=== PATIENT | female | born 1945 | race Caucasian/White ===

== ENCOUNTER 2021-06-25 13:18 | Outpatient (CLI) | payer MEDICARE | END 2021-06-25 13:19 | disposition critical access hospital (66) | LOC: EMS 13:18 | DX: R06.02 Shortness of breath (principal) | CPT/HCPCS: A0425; A0427 ==

== ENCOUNTER 2021-06-25 13:42 | Emergency (ER) | payer BC, MEDICARE ==
[2021-06-25] MEDS ORDERED: diltiaZEM INJ 5 MG/ML VIAL IVP STA ×3 (14:02→15:41)
[2021-06-25] MEDS ORDERED: SODIUM CHLORIDE 0.9% 1,000 ML IV STA (14:02)
--- NOTE | 2021-06-25 14:20 | ED Physician Documentation ---
PD HPI DYSPNEA - Stated complaint Stated Complaint: SHORTNESS OF BREATH - Chief complaint Chief Complaint: Cardiac - History obtained from History obtained from: Patient, EMS - History of Present Illness Timing - onset: How many weeks ago Timing - onset during: Light activity Timing - duration: Weeks Timing - details: Abrupt onset (She states she has noted feeling of some lightheadedness with dyspnea particularly with activity over the last several weeks to a month or more. Feels okay with rest. Has had the symptoms again the last couple of days off and on.), Still present (was feeling dyspnea this morning, does not feel it currently in ER.), Waxing and waning Inciting event(s): Exercise (feeling dyspnea with light activity.). No: URI Improved by: Rest Worsened by: Exertion. No: Laying flat Associated symptoms: No: Fever, Cough, Wheezing, Chest pain / discomfort (She denies chest pain per se. She has not noticed her heart rate feeling fast rate even currently here in the ER.), Palpitations, Bilateral edema Similar symptoms before: Has not had sx before (only the past month or so.) Recently seen: Clinic (Went to the walk-in clinic today and found to be in rapid A. fib and referred here to the ER.) Review of Systems Constitutional: denies: Fever, Chills Nose: denies: Rhinorrhea / runny nose, Congestion Throat: denies: Sore throat Cardiac: denies: Chest pain / pressure, Palpitations, Pedal edema, Calf pain Respiratory: reports: Dyspnea. denies: Cough, Wheezing GI: denies: Abdominal Pain, Nausea, Vomiting, Bloody / black stool : denies: Dysuria, Frequency Musculoskeletal: denies: Extremity swelling Neurologic: reports: Generalized weakness. denies: Near syncope Psychiatric: denies: Insomnia Endocrine: denies: Weight loss PD PAST MEDICAL HISTORY - Past Medical History Past Medical History: Yes Cardiovascular: Hypertension, High cholesterol Endocrine/Autoimmune: HyPOthyroidism - Present Medications Home Medications: Ambulatory Orders Medication Instructions Recorded Confirmed Aspirin EC [Ecotrin] 81 mg PO DAILY 06/25/21 06/25/21 Levothyroxine Sodium [Synthroid] 100 mcg PO DAILY 06/25/21 06/25/21 Rivaroxaban [Xarelto] 20 mg PO DAILY 30 Days #30 tablet 06/25/21 Rosuvastatin Calcium [Crestor] 10 mg PO DAILY 06/25/21 06/25/21 diltiaZEM CD [Cardizem Cd] 120 mg PO DAILY 30 Days #30 cap 06/25/21 - Allergies Allergies/Adverse Reactions: Allergies Allergy/AdvReac Type Severity Reaction Status Date / Time ampicillin Allergy Hives Verified 06/25/21 13:51 codeine Allergy Hives Verified 06/25/21 13:51 - Social History Does the pt smoke?: No Smoking Status: Never smoker - POLST Patient has POLST: No PD ED PE NORMAL - Vitals Vital signs reviewed: Yes - General General: Alert and oriented X 3, No acute distress, Well developed/nourished - HEENT HEENT: Pharynx benign. No: Moist mucous membranes - Neck Neck: Supple, no meningeal sign, No adenopathy - Cardiac Cardiac: No murmur. No: RRR (Rapid heart rate without any notable murmur. Has irregularity.) - Respiratory Respiratory: No respiratory distress, Clear bilaterally - Abdomen Abdomen: Soft, Non tender - Derm Derm: Normal color, Warm and dry - Extremities Extremities: No edema, No calf tenderness / cord - Neuro Neuro: Alert and oriented X 3, No motor deficit, Normal speech Results - Vitals Vitals: Vital Signs - 24 hr 06/25/21 06/25/21 06/25/21 13:46 13:59 14:55 Temperature 36.3 C L Heart Rate 144 H 158 H 138 H Respiratory 20 33 H Rate Blood Pressure 164/107 H 164/107 H 138/90 H O2 Saturation 96 96 06/25/21 06/25/21 06/25/21 15:00 15:04 15:09 Temperature Heart Rate 106 H 98 81 Respiratory 23 Rate Blood Pressure 148/89 H 124/76 127/78 O2 Saturation 95 Oxygen O2 Source Room air - EKG (time done) 13:43 Rate: Rate (enter#) (145) Rhythm: Atrial fibrillation [place]: Normal Intervals: Prolonged QT QRS: LVH Ischemia: Non specific changes (c/w LVH). No: ST elevation c/w ischemia, ST depression Compare to prior EKG: Old EKG unavailable - Labs Labs: Laboratory Tests 06/25/21 06/25/21 06/25/21 14:11 14:11 14:11 WBC 10.2 RBC 4.63 Hgb 15.0 Hct 44.5 MCV 96.1 MCH 32.4 H MCHC 33.7 RDW 12.6 Plt Count 251 MPV 8.8 Neut # (Auto) 8.1 H Lymph # (Auto) 1.4 L [place] # (Auto) 0.6 Eos # (Auto) 0.1 Baso # (Auto) 0.0 Absolute Nucleated RBC 0.00 Nucleated RBC % 0.0 Sodium 140 Potassium 4.2 Chloride 107 Carbon Dioxide 21 Anion Gap 12.0 BUN 15 Creatinine 1.0 Estimated GFR (MDRD) 54 L Glucose 117 H Calcium 9.5 Magnesium 2.3 Total Bilirubin 1.8 H AST 47 H ALT 44 Alkaline Phosphatase 75 Troponin I High Sens 32.0 H* B-Natriuretic Peptide Total Protein 7.4 Albumin 4.5 Globulin 2.9 Albumin/Globulin Ratio 1.6 Lipase 78 H TSH Free T4 Free T3 pg/mL 06/25/21 06/25/21 06/25/21 14:11 14:11 14:11 WBC RBC Hgb Hct MCV MCH MCHC RDW Plt Count MPV Neut # (Auto) Lymph # (Auto) [place] # (Auto) Eos # (Auto) Baso # (Auto) Absolute Nucleated RBC Nucleated RBC % Sodium Potassium Chloride Carbon Dioxide Anion Gap BUN Creatinine Estimated GFR (MDRD) Glucose Calcium Magnesium Total Bilirubin AST ALT Alkaline Phosphatase Troponin I High Sens B-Natriuretic Peptide 572 H Total Protein Albumin Globulin Albumin/Globulin Ratio Lipase TSH 18.24 H Free T4 0.79 Free T3 pg/mL 2.74 PD MEDICAL DECISION MAKING - ED course Complexity details: reviewed results, re-evaluated patient (Heart rate is slowed after 2 doses of IV diltiazem for a total of 30 mg. The patient still feels okay. Heart rate now is 90-115. She is given an oral dose of diltiazem as well as Xarelto.), considered differential (She is noted symptoms with exertion mainly. She feels these are on and off for the last several weeks. However she does not feel tachycardic or palpitations currently so unclear whether persistent A. fib with uncontrolled rate versus intermittent fib.), d/w patient ED course: The patient's strong preference is to go home with oral medication and see how she does over the next few days. Limitations are she does not have a primary care provider. She lives with her daughter who can take her blood pressure and check her heart rate. The patient's perspective is that she was doing well enough with it going very fast and the medicine should help better than that. With that logic, it is reasonable that she should not experience too much problems if the medication is not of sufficient dose over the next few days. Shared decision is for the patient to go home with oral diltiazem and Xarelto and to recheck her then either back in the ER or walk-in or if she is able to get an acute appointment with a new care provider. Subsequently she will need primary care for ongoing dose regimen as well as further work-up to include likely echocardiogram and possible stress testing. These can be done outpatient. Old records suggest she had Dr. Romero as a primary care physician in the past. She could try contacting his office. Alternatively can give number for [facility] or other providers. Departure - Departure Clinical Impression: Atrial fibrillation with rapid ventricular response Condition: Stable Record reviewed to determine appropriate education?: Yes Instructions: ED Afib Follow-Up: Jaswinder Romero MD [Physician No Access] - [facility] [Provider Group] Prescriptions: diltiaZEM CD [Cardizem Cd] 120 mg PO DAILY 30 Days #30 cap Rivaroxaban [Xarelto] 20 mg PO DAILY 30 Days #30 tablet Comments: You do have an irregular heart rate called atrial fibrillation. It was going excessively fast and has been decreased in rate with some medication here in the ER. We will need to see what is the best optimal dose of the medication to maintain the heart rate controlled or back in normal rhythm over the next days/weeks and longer term. A concern with atrial fibrillation is forming clots in the upper heart chamber and so we commonly treat with a blood thinner as well to keep that from happening, in order to decrease the risk for stroke or blood clots and other organs. I prescribed diltiazem 120 mg daily and Xarelto 20 mg daily. Since it will be good if you are able to check your blood pressure and heart rate 2-3 times daily over the next several days to week to get a trend of how well the diltiazem is working. Call Dr. Romero or one of the other clinics in [place] and see if you can get in this coming week for a recheck. Your medication is started at a lower dose to minimize side effects. It may need to be increased in dose to regulate well your heart rate. Would also be good if your heart rate went back to his regular rhythm which is common. You will likely need further testing of your heart such as ultrasound of the heart and possibly stress testing. This can be done outpatient in order through your primary care. If you are unable to get into her primary care this coming week, then you could get rechecked at the walk-in clinic or in the ER. Return to the ER if symptoms are worsening. I transmitted your prescriptions to [facility] in [place].
[2021-06-25 14:22] LABS: BASOPHILS % (AUTO) 0.4 %; EOSINOPHILS # (AUTO) 0.1 10^3/uL (0.0-0.7); EOSINOPHILS % (AUTO) 1.2 %; HCT - HEMATOCRIT 44.5 % (37.0-47.0); LYMPHOCYTES # (AUTO) 1.4 10^3/uL (1.5-3.5); LYMPHOCYTES % (AUTO) 13.4 %; MEAN CORPUSCULAR HEMOGLOBIN 32.4 pg (27.0-31.0); MEAN CORPUSCULAR HGB CONC 33.7 g/dL (32.0-36.0); MEAN CORPUSCULAR VOLUME 96.1 fL (81.0-99.0); MEAN PLATELET VOLUME 8.8 fL (7.9-10.8); MONOCYTES # (AUTO) 0.6 10^3/uL (0.0-1.0); MONOCYTES % (AUTO) 5.4 %; NEUTROPHILS # (AUTO) 8.1 10^3/uL (1.5-6.6); NEUTROPHILS % (AUTO) 79.1 %; PLT - PLATELET COUNT 251 10^3/uL (130-450); RED BLOOD COUNT 4.63 10^6/uL (4.20-5.40); RED CELL DISTRIBUTION WIDTH 12.6 % (12.0-15.0); WHITE BLOOD COUNT 10.2 x10^3/uL (4.8-10.8)
[2021-06-25 14:35] LABS: ALBUMIN 4.5 g/dL (3.2-5.5); ALBUMIN/GLOBULIN RATIO 1.6 (1.0-2.2); BILIRUBIN,TOTAL 1.8 mg/dL (0.2-1.0); CALCIUM 9.5 mg/dL (8.5-10.3); MAGNESIUM 2.3 mg/dL (1.7-2.8); POTASSIUM 4.2 mmol/L (3.5-5.0); TOTAL PROTEIN 7.4 g/dL (6.7-8.2)
[2021-06-25] MEDS ORDERED: diltiaZEM 30 MG TABLET PO STA (15:12)
[2021-06-25] MEDS ORDERED: RIVAROXABAN 15 MG TABLET PO STA (15:12)
--- NOTE | 2021-06-25 15:13 | XRAY Report ---
PROCEDURE: Chest 1 View X-Ray INDICATIONS: Chest Pain TECHNIQUE: One view of the chest was acquired. COMPARISON: None FINDINGS: Surgical changes and devices: None. Lungs and pleura: No pleural effusions or pneumothorax. Interstitial pulmonary edema. Mediastinum: Mediastinal contours appear normal. Cardiomegaly. Bones and chest wall: No suspicious bony lesions. Overlying soft tissues appear unremarkable. IMPRESSION: Congestive heart failure exacerbation. Reviewed by: Luis Nunes MD on 06/25/2021 2:[address] [facility] Approved by: Luis Nunes MD on 06/25/2021 2:[address] [facility] Station ID: [id number]
[2021-06-25 15:36] LABS: FREE T3 2.74 pg/mL (2.5-3.9)
[2021-06-25 15:37] LABS: FREE T4 (FREE THYROXINE) 0.79 ng/dL (0.58-1.64)
[2021-06-25 16:23] VITALS: BP 142/80
== END 2021-06-25 16:22 | disposition home or self-care (01) ==
LOC: EDUNIT# → ED 13:42
DX: I48.20 Chronic atrial fibrillation, unspecified (principal); Z79.01 Long term (current) use of anticoagulants; I10 Essential (primary) hypertension
CPT/HCPCS: 36415; 71045; 80053; 83690; 83735; 83880; 84439; 84443; 84481; 84484; 85025; 93005; 96374; 96376; 99283; 99284; A9270

== ENCOUNTER 2021-06-28 10:03 | Outpatient (CLI) | payer MEDICARE ==
[2021-06-28 12:25] LABS: INR 1.5 (0.8-1.2); PT - PROTHROMBIN TIME 16.8 secs (9.9-12.6)
[2021-06-28 12:39] LABS: HCT - HEMATOCRIT 36.7 % (37.0-47.0); HGB - HEMOGLOBIN 12.4 g/dL (12.0-16.0); MEAN CORPUSCULAR HEMOGLOBIN 32.5 pg (27.0-31.0); MEAN CORPUSCULAR HGB CONC 33.8 g/dL (32.0-36.0); MEAN CORPUSCULAR VOLUME 96.3 fL (81.0-99.0); MEAN PLATELET VOLUME 9.3 fL (7.9-10.8); RED BLOOD COUNT 3.81 10^6/uL (4.20-5.40); RED CELL DISTRIBUTION WIDTH 12.7 % (12.0-15.0); WHITE BLOOD COUNT 8.8 x10^3/uL (4.8-10.8)
[2021-06-28 12:51] LABS: ALBUMIN 4.4 g/dL (3.2-5.5); ALBUMIN/GLOBULIN RATIO 1.7 (1.0-2.2); BILIRUBIN,TOTAL 2.9 mg/dL (0.2-1.0); CALCIUM 9.1 mg/dL (8.5-10.3); CREATININE 0.9 mg/dL (0.4-1.0); POTASSIUM 3.9 mmol/L (3.5-5.0)
== END 2021-06-28 23:59 | disposition home or self-care (01) ==
LOC: LAB.N 10:03
PROVIDERS: ATTEND Nurse Practitioner
DX: I48.91 Unspecified atrial fibrillation (principal)
CPT/HCPCS: 36415; 80053; 83880; 85027; 85610; 85730

== ENCOUNTER 2022-06-17 19:21 | Outpatient (CLI) | payer MEDICARE | END 2022-06-17 23:59 | disposition critical access hospital (66) | LOC: EMS 19:21 | DX: R41.82 Altered mental status, unspecified (principal); R53.1 Weakness; R11.10 Vomiting, unspecified | CPT/HCPCS: A0425; A0427 ==

== ENCOUNTER 2022-06-17 19:36 | Inpatient (IN) | payer MEDICARE ==
[2022-06-17] MEDS ORDERED: PROPOFOL 200 MG/20 ML VIAL IVP STA (19:40)
[2022-06-17] MEDS ORDERED: LABETALOL 20 MG/4 ML SYRINGE IVP STA (19:40)
[2022-06-17] MEDS ORDERED: ROCURONIUM 50 MG/5 ML VIAL IVP STA (19:40)
[2022-06-17] MEDS ORDERED: fentaNYL 100 MCG/2 ML VIAL IVP STA (19:42)
[2022-06-17] MEDS ORDERED: iohexoL-300 100 ML VIAL ONE (19:47)
[2022-06-17] MEDS ORDERED: PROPOFOL 1000 MG/100 ML 1,000 MG/100 ML BOTTLE IV STA ×2 (19:58→23:21)
[2022-06-17 20:03] LABS: BASOPHILS % (AUTO) 0.5 %; EOSINOPHILS # (AUTO) 0.1 10^3/uL (0.0-0.7); EOSINOPHILS % (AUTO) 1.5 %; HCT - HEMATOCRIT 43.2 % (37.0-47.0); HGB - HEMOGLOBIN 14.4 g/dL (12.0-16.0); LYMPHOCYTES # (AUTO) 3.4 10^3/uL (1.5-3.5); LYMPHOCYTES % (AUTO) 38.8 %; MEAN CORPUSCULAR HEMOGLOBIN 33.3 pg (27.0-31.0); MEAN CORPUSCULAR HGB CONC 33.3 g/dL (32.0-36.0); MEAN PLATELET VOLUME 9.3 fL (7.9-10.8); MONOCYTES # (AUTO) 0.4 10^3/uL (0.0-1.0); MONOCYTES % (AUTO) 4.4 %; NEUTROPHILS # (AUTO) 4.7 10^3/uL (1.5-6.6); NEUTROPHILS % (AUTO) 54.6 %; PLT - PLATELET COUNT 227 10^3/uL (130-450); RED BLOOD COUNT 4.32 10^6/uL (4.20-5.40); RED CELL DISTRIBUTION WIDTH 13.2 % (12.0-15.0); WHITE BLOOD COUNT 8.7 x10^3/uL (4.8-10.8)
[2022-06-17 20:09] LABS: ACETAMINOPHEN < 10 ug/mL (10-30); ALBUMIN 4.3 g/dL (3.2-5.5); ALBUMIN/GLOBULIN RATIO 1.4 (1.0-2.2); ALKALINE PHOSPHATASE 55 IU/L (42-121); ALT ALANINE AMINOTRANSFERASE 29 IU/L (10-60); AST ASPARTATE AMINOTRANSFERASE 40 IU/L (10-42); BILIRUBIN,TOTAL 1.7 mg/dL (0.2-1.0); BUN - BLOOD UREA NITROGEN 23 mg/dL (6-20); CALCIUM 8.8 mg/dL (8.5-10.3); CARBON DIOXIDE - CO2 23 mmol/L (21-32); CHLORIDE 104 mmol/L (101-111); CREATININE 1.1 mg/dL (0.4-1.0); ETOH - ETHANOL < 5.0 mg/dL; GFR - MDRD 48 (>89); GLUCOSE 198 mg/dL (70-100); MAGNESIUM 2.3 mg/dL (1.7-2.8); POTASSIUM 4.3 mmol/L (3.5-5.0); SALICYLATE < 6.0 mg/dL; SODIUM 136 mmol/L (135-145); TOTAL PROTEIN 7.3 g/dL (6.7-8.2)
[2022-06-17 20:15] LABS: PT - PROTHROMBIN TIME 11.1 secs (9.9-12.6)
[2022-06-17] MEDS ORDERED: NOREPINEPHRINE/0.9 % NS 8 MG/250 ML BAG IV ONE (20:16)
--- NOTE | 2022-06-17 20:17 | XRAY Report ---
PROCEDURE: Chest 1 View X-Ray INDICATIONS: resp failure TECHNIQUE: One view of the chest was acquired. COMPARISON: 06/25/2021 FINDINGS: Surgical changes and devices: An endotracheal tube is seen, with the tip 4 cm above the quinton. Lungs and pleura: Generalized interstitial prominence can be seen. On the supine study, no large pne umothorax or large pleural effusions can be seen. No focal infiltrates are detected. Mediastinum: Mediastinal contours appear normal. Heart size is mildly enlarged. Bones and chest wall: No suspicious bony lesions. Age-appropriate degenerative changes are seen. Overlying soft tissues appear unremarkable. IMPRESSION: The tip of the endotracheal tube is seen 4 cm above the quinton. Mild cardiomegaly and interstitial prominence. Please consider CHF. Reviewed by: Steven Deleon MD on 06/17/2022 7:16 PM [facility] Approved by: Steven Deleon MD on 06/17/2022 7:16 PM [facility] Station ID: [id number]
[2022-06-17] MEDS ORDERED: EPINEPHrine ABBOJECT 1 MG/10 ML SYRINGE IVP STA (20:18)
[2022-06-17] MEDS: NOREPINEPHRINE/0.9 % NS 8 MG/250 ML BAG IV SCH (20:23)
[2022-06-17 20:29] LABS: ABG BASE EXCESS -6.4 mmol/L (-2.0-3.0); ABG HCO3 19.6 mmol/L (22.0-26.0); ABG OXYGEN SATURATION 97 % (94-98); ABG PCO2 41 mmHg (34-45); ABG PO2 107 mmHg (80-100); ABG TCO2 20.9 MMOL/L (21.0-29.0)
[2022-06-17 20:30] LABS: ABG MODE OF VENTILATION SIMV; ABG RESPIRATORY RATE 20 b/min; ALLEN TEST POSITIVE
--- NOTE | 2022-06-17 20:31 | XRAY Report ---
PROCEDURE: Chest for Line Placement INDICATIONS: RIJ CVC TECHNIQUE: One view of the chest was acquired. COMPARISON: 06/17/2022, 06/25/2021 FINDINGS: Surgical changes and devices: A right-sided central line has been placed. The tip is seen overlying the right atrium, approximately 2 cm below the cavoatrial junction. An endotracheal tube is seen, with the tip 4 cm above the quinton. Lungs and pleura: No pleural effusions or pneumothorax. Generalized interstitial prominence can be s een. Mediastinum: Mediastinal contours appear normal. Heart size is mildly enlarged. Bones and chest wall: Age-appropriate degenerative changes are seen. No suspicious bony lesions. O verlying soft tissues appear unremarkable. IMPRESSION: The tip of the right-sided central line can be seen overlying the right atrium. If clinically appropr iate, please consider withdrawal 2-3 cm. Reviewed by: Steven Deleon MD on 06/17/2022 7:30 PM [facility] Approved by: Steven Deleon MD on 06/17/2022 7:30 PM [facility] Station ID: [id number]
[2022-06-17 20:38] LABS: T4 (THYROXINE) 3.8 ug/dL (6.09-12.23)
--- NOTE | 2022-06-17 20:43 | ED Physician Documentation ---
History of Present Illness - Stated complaint Stated Complaint: COMA - Chief complaint Chief Complaint: Critical Care - Additonal information Additional information: 76-year-old woman with history of A-fib, reportedly not currently on any me dications because of lost to follow-up was found down today. She was intubated prior to arrival. CPR was performed on scene but was reportedly not pulseless for EMS. No further history is available. No family available initially. PD PAST MEDICAL HISTORY - Past Medical History Cardiovascular: Hypertension, High cholesterol Endocrine/Autoimmune: HyPOthyroidism - Present Medications Home Medications: Ambulatory Orders Medication Instructions Recorded Confirmed Aspirin EC [Ecotrin] 81 mg PO DAILY 06/25/21 06/25/21 Levothyroxine Sodium [Synthroid] 100 mcg PO DAILY 06/25/21 06/25/21 Rivaroxaban [Xarelto] 20 mg PO DAILY 30 Days #30 tablet 06/25/21 Rosuvastatin Calcium [Crestor] 10 mg PO DAILY 06/25/21 06/25/21 diltiaZEM CD [Cardizem Cd] 120 mg PO DAILY 30 Days #30 cap 06/25/21 - Allergies Allergies/Adverse Reactions: Allergies Allergy/AdvReac Type Severity Reaction Status Date / Time ampicillin Allergy Hives Verified 06/25/21 13:51 codeine Allergy Hives Verified 06/25/21 13:51 - Social History Does the pt smoke?: No Smoking Status: Never smoker - POLST Patient has POLST: No PD ED PE NORMAL - Vitals Vital signs reviewed: Yes - General General: Other (She is intubated with a Rodrick tube with an air leak. GCS of 3.) - HEENT HEENT: Other (Small pupils, nonreactive) - Cardiac Cardiac: Other (Rapid and irregular) - Respiratory Respiratory: Other (Rhonchorous breath sounds, breathing over the ventilator) - Abdomen Abdomen: Non tender - Extremities Extremities: No edema, No calf tenderness / cord - Neuro Eye Opening: None Motor: None Verbal: None GCS Score: 3 Results - Vitals Vitals: Vital Signs - 24 hr 06/17/22 06/17/22 06/17/22 19:37 19:53 20:00 Temperature 34.7 C L Heart Rate 130 H 91 94 Respiratory 19 14 Rate Blood Pressure 181/99 H 73/62 L 55/40 L O2 Saturation 80 L 100 95 06/17/22 06/17/22 06/17/22 20:03 20:08 20:09 Temperature Heart Rate 102 H 116 H Respiratory 20 Rate Blood Pressure 88/60 L 99/64 O2 Saturation 97 06/17/22 06/17/22 06/17/22 20:13 20:25 20:30 Temperature Heart Rate 107 H 47 L 49 L Respiratory 20 20 20 Rate Blood Pressure 75/53 L 86/49 L 111/62 O2 Saturation 99 99 100 06/17/22 06/17/22 06/17/22 20:40 20:45 20:50 Temperature Heart Rate 47 L 48 L 49 L Respiratory 20 20 20 Rate Blood Pressure 120/67 134/74 H 150/94 H O2 Saturation 100 100 100 06/17/22 06/17/22 06/17/22 20:55 21:15 21:30 Temperature 33.5 C L Heart Rate 65 50 L 50 L Respiratory 20 20 18 Rate Blood Pressure 159/88 H 157/94 H 149/94 H O2 Saturation 100 100 100 06/17/22 06/17/22 06/17/22 21:42 21:45 22:00 Temperature 34.3 C L 34.4 C L Heart Rate 65 50 L 53 L Respiratory 14 14 Rate Blood Pressure 151/87 H 141/79 H O2 Saturation 100 100 06/17/22 22:15 Temperature 34.5 C L Heart Rate 52 L Respiratory 16 Rate Blood Pressure 134/76 H O2 Saturation 100 Oxygen O2 Source Mechanical ventilator - EKG (time done) 1941 Rate: Rate (enter#) (133) Rhythm: Atrial fibrillation Intervals: Prolonged QT QRS: LVH Ischemia: Normal ST segments - Labs Labs: Laboratory Tests 06/17/22 06/17/22 06/17/22 19:40 19:40 19:40 WBC 8.7 RBC 4.32 Hgb 14.4 Hct 43.2 MCV 100.0 H MCH 33.3 H MCHC 33.3 RDW 13.2 Plt Count 227 MPV 9.3 Neut # (Auto) 4.7 Lymph # (Auto) 3.4 [place] # (Auto) 0.4 Eos # (Auto) 0.1 Baso # (Auto) 0.0 Absolute Nucleated RBC 0.00 Nucleated RBC % 0.0 PT 11.1 INR 1.0 Bld Gas Analysis Time Sample Site ABG pH ABG pCO2 ABG pO2 ABG HCO3 ABG Total CO2 ABG O2 Saturation ABG Base Excess Ruben Test Respiration Rate O2 Delivery Device Vent Mode FiO2 Tidal Volume PEEP Sodium 136 Potassium 4.3 Chloride 104 Carbon Dioxide 23 Anion Gap 9.0 BUN 23 H Creatinine 1.1 H Estimated GFR (MDRD) 48 L Glucose 198 H Calcium 8.8 Magnesium 2.3 Total Bilirubin 1.7 H AST 40 ALT 29 Alkaline Phosphatase 55 Total Protein 7.3 Albumin 4.3 Globulin 3.0 Albumin/Globulin Ratio 1.4 TSH Thyroxine (T4) Urine Color Urine Clarity Urine pH Ur Specific [place] Urine Protein Urine Glucose (UA) Urine Ketones Urine Occult Blood Urine Nitrite Urine Bilirubin Urine Urobilinogen Ur Leukocyte Esterase Urine RBC Urine WBC Ur Squamous Epith Cells Urine Bacteria Ur Microscopic Review Urine Culture Comments Salicylates < 6.0 Urine Opiates Screen Ur Oxycodone Screen Urine Methadone Screen Ur Propoxyphene Screen Acetaminophen < 10 L Ur Barbiturates Screen Ur Tricyclics Screen Ur Phencyclidine Scrn Ur Amphetamine Screen U Methamphetamines Scrn U Benzodiazepines Scrn Urine Cocaine Screen U Cannabinoids Screen Ethyl Alcohol < 5.0 06/17/22 06/17/22 06/17/22 19:40 20:22 21:20 WBC RBC Hgb Hct MCV MCH MCHC RDW Plt Count MPV Neut # (Auto) Lymph # (Auto) [place] # (Auto) Eos # (Auto) Baso # (Auto) Absolute Nucleated RBC Nucleated RBC % PT INR Bld Gas Analysis Time 2026 Sample Site RIGHT RADIAL ABG pH 7.30 L ABG pCO2 41 ABG pO2 107 H ABG HCO3 19.6 L ABG Total CO2 20.9 L ABG O2 Saturation 97 ABG Base Excess -6.4 L Ruben Test POSITIVE Respiration Rate 20 O2 Delivery Device VENTILATOR Vent Mode SIMV FiO2 100.00 Tidal Volume 450 PEEP 5 Sodium Potassium Chloride Carbon Dioxide Anion Gap BUN Creatinine Estimated GFR (MDRD) Glucose Calcium Magnesium Total Bilirubin AST ALT Alkaline Phosphatase Total Protein Albumin Globulin Albumin/Globulin Ratio TSH 110.78 H Thyroxine (T4) 3.80 L Urine Color YELLOW Urine Clarity CLEAR Urine pH 6.5 Ur Specific [place] 1.010 Urine Protein 100 H Urine Glucose (UA) NEGATIVE Urine Ketones NEGATIVE Urine Occult Blood NEGATIVE Urine Nitrite NEGATIVE Urine Bilirubin NEGATIVE Urine Urobilinogen 0.2 (NORMAL) Ur Leukocyte Esterase NEGATIVE Urine RBC None Seen Urine WBC 0-3 Ur Squamous Epith Cells RARE Squamous Urine Bacteria None Seen Ur Microscopic Review INDICATED Urine Culture Comments NOT INDICATED Salicylates Urine Opiates Screen NEGATIVE Ur Oxycodone Screen NEGATIVE Urine Methadone Screen NEGATIVE Ur Propoxyphene Screen NEGATIVE Acetaminophen Ur Barbiturates Screen NEGATIVE Ur Tricyclics Screen NEGATIVE Ur Phencyclidine Scrn NEGATIVE Ur Amphetamine Screen NEGATIVE U Methamphetamines Scrn NEGATIVE U Benzodiazepines Scrn NEGATIVE Urine Cocaine Screen NEGATIVE U Cannabinoids Screen NEGATIVE Ethyl Alcohol - Rads (name of study) Single view cxr Radiology: Final report received, EMP read indepedently (Single view chest x-ray demonstrates the endotracheal tube 4 cm above the quinton. Radiologist felt interstitial prominence which I think clinically is likely aspiration.) 1v cxr for line Radiology: Final report received, EMP read indepedently (Chest for line placement, the radiologist read it as being in the atrium but he did not look at the second film which was after removal of the line by 4 cm where the tip looks appropriate.) CT of the head without contrast Radiology: Final report received (Normal per radiology), EMP read indepedently (And discussed with neurology and they feel there is early barron-white differentiation changes on the right.) CT angiography of the neck demonstrates 90% left ICA narrowing and subclavian occlusion Radiology: Final report received, EMP read indepedently CT of the head angiography Radiology: Final report received (Normal per radiology), EMP read indepedently (And reviewed with telestroke neurologist and he feels there is a distal occlusion, but not an LVO on the right sylvian fissure) Procedures - Intubation - Major Provider: Emergency physician Medications: Propofol (100mg), Rocuronium (50mg), Fentanyl (100mcg) Blade: Glidescope Tube: Size-enter number (7.0), Cuffed Route: Oral Confirmation: Direct visualization, Bilateral breath sounds, Pulse ox, Chest xray Complications: No compications - Central Line - Major Central Line Preparation: Unable to obtain consent, Time out completed, Ultrasound used, Sterile prep and drape Central line location: Right IJ Central line type: Triple lumen Central line aftercare: Chlorhexidine disc placed, Secured, Placement confirmed, No pneumothorax, No complications, Bundle checklist complete, Pt tolerated well PD Medical Decision Making - ED course ED course: 76-year-old woman who presents in coma with A-fib with RVR. She appears to have aspirated. There is a Rodrick tube in place with an air leak so we reintubated her with an endotracheal tube. Initial thought given that she was vomiting was for most likely a head bleed. Given that she was initially hypertensive she was administered some labetalol. Periintubation she became hypotensive down to 50/30 or so and was administered push dose epinephrine, 50 mcg. Subsequently was started on Norepinephrine drip via a expeditiously but sterilely placed right IJ central line. On return from CT her blood pressure was back up to 150/80 so the Levophed was stopped. She also had converted into normal sinus rhythm. Daughter arrived at the bedside And an independent history was taken from her. She heard a thud upstairs at 1830 which she thought was the cat. Subsequently went upstairs around 7 and found her on the floor in her bedroom. Subsequently I spoke with the [place] telestroke neurologist who looked at his imaging. He feels that there is early barron-white changes on the right and distal occlusion on the right that does not fit criteria for a large vessel occlusion. He recommends transfer to a neuro ICU but does not recommend TNK or Code IR transfer. The daughter at the bedside had never discussed goals of care with her mom. But she spoke with her sister, the patient's other daughter who I spoke with by phone and had discussed goals of care. She did not want super aggressive measures or heroic measures. [place], watchful waiting in our ICU versus a transition to comfort care and she opted for the middle option. I spoke with Dr. Pierson of the hospitalist service who will see the patient. This was at 10:30 PM. - Critical Care Time(min): 65 Time Includes: Direct patient care, Review records, Reassess patient, Document care, Coordinate care, Medical consult, Family consult for tx dec Data interpretation: Labs, ABG, CXR Procedures included in critical care time: Peripheral IV Procedures excluded from critical care time: Central IV, EKG Departure - Departure Disposition: 66 CAH DC/Xfer Clinical Impression: Cerebrovascular accident (CVA), Coma, Respiratory failure, Aspiration into airway, Atrial fibrillation with RVR Condition: Critical
--- OUTSIDE RECORDS SUMMARY | 2022-06-17 21:01 | EXTERNAL MEDICAL SUMMARY RPT | Continuity of Care Document ---
:1945 Author Organization [facility] Address [address] [place] [address] Phone Care Team Providers Name Role Phone Unavailable Unavailable Unavailable Prachi, Provider Unavailable Unavailable Allergies No information. Encounters No information. Functional Status No information. Immunizations No information. Medications date description facility 2022-06-17 00:00 rivaroxaban All 2022-06-17 00:00 rivaroxaban All 2022-06-17 00:00 diltiazem hcl All 2022-06-17 00:00 rivaroxaban All 2022-06-17 00:00 diltiazem hcl All 2022-06-17 00:00 diltiazem hcl All 2022-06-17 00:00 diltiazem hcl All 2022-06-17 00:00 rivaroxaban All Problems date description facility 2022-06-17 00:00 Unspecified hypothyroidism All 2022-06-17 00:00 Other and unspecified hyperlipidemia A ll 2022-06-17 00:00 Hypothyroidism All 2022-06-17 00:00 Hyperlipidemia All 2022-06-17 00:00 Hypothyroidism, unspecified All 2022-06-17 00:00 Hyperlipidemia, unspecified All Procedures No information. Results/Labs test date author facility value unit interpret ation Result panel 1 (unknown) (no date) (unknown) All (no value) (units unknown ) (unknown) Result panel 2 (unknown) (no date) (unknown) All (no value) (units unknown ) (unknown) Result panel 3 (unknown) (no date) (unknown) All (no value) (units unknown ) (unknown) Result panel 4 (unknown) (no date) (unknown) All (no value) (units unknown ) (unknown) Result panel 5 (unknown) (no date) (unknown) All (no value) (units unknown ) (unknown) Result panel 6 (unknown) (no date) (unknown) All (no value) (units unknown ) (unknown) Result panel 7 (unknown) (no date) (unknown) All (no value) (units unknown ) (unknown) Result panel 8 (unknown) (no date) (unknown) All (no value) (units unknown ) (unknown) Result panel 9 (unknown) (no date) (unknown) All (no value) (units unknown ) (unknown) Result panel 10 (unknown) (no date) (unknown) All (no value) (units unknown ) (unknown) Result panel 11 (unknown) (no date) (unknown) All (no value) (units unknown ) (unknown) Result panel 12 (unknown) (no date) (unknown) All (no value) (units unknown ) (unknown) Result panel 13 (unknown) (no date) (unknown) All (no value) (units unknown ) (unknown) Result panel 14 (unknown) (no date) (unknown) All (no value) (units unknown ) (unknown) Result panel 15 (unknown) (no date) (unknown) All (no value) (units unknown ) (unknown) Result panel 16 (unknown) (no date) (unknown) All (no value) (units unknown ) (unknown) Result panel 17 (unknown) (no date) (unknown) All (no value) (units unknown ) (unknown) Result panel 18 (unknown) (no date) (unknown) All (no value) (units unknown ) (unknown) Result panel 19 (unknown) (no date) (unknown) All (no value) (units unknown ) (unknown) Result panel 20 (unknown) (no date) (unknown) All (no value) (units unknown ) (unknown) Result panel 21 (unknown) (no date) (unknown) All (no value) (units unknown ) (unknown) Result panel 22 (unknown) (no date) (unknown) All (no value) (units unknown ) (unknown) Result panel 23 (unknown) (no date) (unknown) All (no value) (units unknown ) (unknown) Result panel 24 (unknown) (no date) (unknown) All (no value) (units unknown ) (unknown) Result panel 25 (unknown) (no date) (unknown) All (no value) (units unknown ) (unknown) Result panel 26 (unknown) (no date) (unknown) All (no value) (units unknown ) (unknown) Result panel 27 (unknown) (no date) (unknown) All (no value) (units unknown ) (unknown) Result panel 28 (unknown) (no date) (unknown) All (no value) (units unknown ) (unknown) Result panel 29 (unknown) (no date) (unknown) All (no value) (units unknown ) (unknown) Result panel 30 (unknown) (no date) (unknown) All (no value) (units unknown ) (unknown) Result panel 31 (unknown) (no date) (unknown) All (no value) (units unknown ) (unknown) Result panel 32 (unknown) (no date) (unknown) All (no value) (units unknown ) (unknown) Result panel 33 (unknown) (no date) (unknown) All (no value) (units unknown ) (unknown) Result panel 34 (unknown) (no date) (unknown) All (no value) (units unknown ) (unknown) Result panel 35 (unknown) (no date) (unknown) All (no value) (units unknown ) (unknown) Result panel 36 (unknown) (no date) (unknown) All (no value) (units unknown ) (unknown) Result panel 37 (unknown) (no date) (unknown) All (no value) (units unknown ) (unknown) Result panel 38 (unknown) (no date) (unknown) All (no value) (units unknown ) (unknown) Result panel 39 (unknown) (no date) (unknown) All (no value) (units unknown ) (unknown) Result panel 40 (unknown) (no date) (unknown) All (no value) (units unknown ) (unknown) Result panel 41 (unknown) (no date) (unknown) All (no value) (units unknown ) (unknown) Result panel 42 (unknown) (no date) (unknown) All (no value) (units unknown ) (unknown) Result panel 43 (unknown) (no date) (unknown) All (no value) (units unknown ) (unknown) Result panel 44 (unknown) (no date) (unknown) All (no value) (units unknown ) (unknown) Result panel 45 (unknown) (no date) (unknown) All (no value) (units unknown ) (unknown) Result panel 46 (unknown) (no date) (unknown) All (no value) (units unknown ) (unknown) Result panel 47 (unknown) (no date) (unknown) All (no value) (units unknown ) (unknown) Result panel 48 (unknown) (no date) (unknown) All (no value) (units unknown ) (unknown) Result panel 49 (unknown) (no date) (unknown) All (no value) (units unknown ) (unknown) Result panel 50 (unknown) (no date) (unknown) All (no value) (units unknown ) (unknown) Result panel 51 (unknown) (no date) (unknown) All (no value) (units unknown ) (unknown) Result panel 52 (unknown) (no date) (unknown) All (no value) (units unknown ) (unknown) Result panel 53 (unknown) (no date) (unknown) All (no value) (units unknown ) (unknown) Result panel 54 (unknown) (no date) (unknown) All (no value) (units unknown ) (unknown) Result panel 55 (unknown) (no date) (unknown) All (no value) (units unknown ) (unknown) Result panel 56 (unknown) (no date) (unknown) All (no value) (units unknown ) (unknown) Result panel 57 (unknown) (no date) (unknown) All (no value) (units unknown ) (unknown) Result panel 58 (unknown) (no date) (unknown) All (no value) (units unknown ) (unknown) Result panel 59 (unknown) (no date) (unknown) All (no value) (units unknown ) (unknown) Result panel 60 (unknown) (no date) (unknown) All (no value) (units unknown ) (unknown) Result panel 61 (unknown) (no date) (unknown) All (no value) (units unknown ) (unknown) Result panel 62 (unknown) (no date) (unknown) All (no value) (units unknown ) (unknown) Result panel 63 (unknown) (no date) (unknown) All (no value) (units unknown ) (unknown) Result panel 64 (unknown) (no date) (unknown) All (no value) (units unknown ) (unknown) Result panel 65 (unknown) (no date) (unknown) All (no value) (units unknown ) (unknown) Result panel 66 (unknown) (no date) (unknown) All (no value) (units unknown ) (unknown) Result panel 67 (unknown) (no date) (unknown) All (no value) (units unknown ) (unknown) Result panel 68 (unknown) (no date) (unknown) All (no value) (units unknown ) (unknown) Result panel 69 (unknown) (no date) (unknown) All (no value) (units unknown ) (unknown) Result panel 70 (unknown) (no date) (unknown) All (no value) (units unknown ) (unknown) Result panel 71 (unknown) (no date) (unknown) All (no value) (units unknown ) (unknown) Result panel 72 (unknown) (no date) (unknown) All (no value) (units unknown ) (unknown) Result panel 73 (unknown) (no date) (unknown) All (no value) (units unknown ) (unknown) Result panel 74 (unknown) (no date) (unknown) All (no value) (units unknown ) (unknown) Result panel 75 (unknown) (no date) (unknown) All (no value) (units unknown ) (unknown) Result panel 76 (unknown) (no date) (unknown) All (no value) (units unknown ) (unknown) Result panel 77 (unknown) (no date) (unknown) All (no value) (units unknown ) (unknown) Result panel 78 (unknown) (no date) (unknown) All (no value) (units unknown ) (unknown) Result panel 79 (unknown) (no date) (unknown) All (no value) (units unknown ) (unknown) Result panel 80 (unknown) (no date) (unknown) All (no value) (units unknown ) (unknown) Result panel 81 (unknown) (no date) (unknown) All (no value) (units unknown ) (unknown) Result panel 82 (unknown) (no date) (unknown) All (no value) (units unknown ) (unknown) Result panel 83 (unknown) (no date) (unknown) All (no value) (units unknown ) (unknown) Result panel 84 (unknown) (no date) (unknown) All (no value) (units unknown ) (unknown) Result panel 85 (unknown) (no date) (unknown) All (no value) (units unknown ) (unknown) Result panel 86 (unknown) (no date) (unknown) All (no value) (units unknown ) (unknown) Result panel 87 (unknown) (no date) (unknown) All (no value) (units unknown ) (unknown) Result panel 88 (unknown) (no date) (unknown) All (no value) (units unknown ) (unknown) Result panel 89 (unknown) (no date) (unknown) All (no value) (units unknown ) (unknown) Result panel 90 (unknown) (no date) (unknown) All (no value) (units unknown ) (unknown) Result panel 91 (unknown) (no date) (unknown) All (no value) (units unknown ) (unknown) Result panel 92 (unknown) (no date) (unknown) All (no value) (units unknown ) (unknown) Result panel 93 (unknown) (no date) (unknown) All (no value) (units unknown ) (unknown) Result panel 94 (unknown) (no date) (unknown) All (no value) (units unknown ) (unknown) Result panel 95 (unknown) (no date) (unknown) All (no value) (units unknown ) (unknown) Result panel 96 (unknown) (no date) (unknown) All (no value) (units unknown ) (unknown) Result panel 97 (unknown) (no date) (unknown) All (no value) (units unknown ) (unknown) Result panel 98 (unknown) (no date) (unknown) All (no value) (units unknown ) (unknown) Result panel 99 (unknown) (no date) (unknown) All (no value) (units unknown ) (unknown) Result panel 100 (unknown) (no date) (unknown) All (no value) (units unknown ) (unknown) Result panel 101 (unknown) (no date) (unknown) All (no value) (units unknown ) (unknown) Result panel 102 (unknown) (no date) (unknown) All (no value) (units unknown ) (unknown) Result panel 103 (unknown) (no date) (unknown) All (no value) (units unknown ) (unknown) Result panel 104 (unknown) (no date) (unknown) All (no value) (units unknown ) (unknown) Result panel 105 (unknown) (no date) (unknown) All (no value) (units unknown ) (unknown) Result panel 106 (unknown) (no date) (unknown) All (no value) (units unknown ) (unknown) Result panel 107 (unknown) (no date) (unknown) All (no value) (units unknown ) (unknown) Result panel 108 (unknown) (no date) (unknown) All (no value) (units unknown ) (unknown) Result panel 109 (unknown) (no date) (unknown) All (no value) (units unknown ) (unknown) Result panel 110 (unknown) (no date) (unknown) All (no value) (units unknown ) (unknown) Result panel 111 (unknown) (no date) (unknown) All (no value) (units unknown ) (unknown) Result panel 112 (unknown) (no date) (unknown) All (no value) (units unknown ) (unknown) Result panel 113 (unknown) (no date) (unknown) All (no value) (units unknown ) (unknown) Result panel 114 (unknown) (no date) (unknown) All (no value) (units unknown ) (unknown) Result panel 115 (unknown) (no date) (unknown) All (no value) (units unknown ) (unknown) Result panel 116 (unknown) (no date) (unknown) All (no value) (units unknown ) (unknown) Result panel 117 (unknown) (no date) (unknown) All (no value) (units unknown ) (unknown) Result panel 118 (unknown) (no date) (unknown) All (no value) (units unknown ) (unknown) Result panel 119 (unknown) (no date) (unknown) All (no value) (units unknown ) (unknown) Result panel 120 (unknown) (no date) (unknown) All (no value) (units unknown ) (unknown) Result panel 121 (unknown) (no date) (unknown) All (no value) (units unknown ) (unknown) Result panel 122 (unknown) (no date) (unknown) All (no value) (units unknown ) (unknown) Result panel 123 (unknown) (no date) (unknown) All (no value) (units unknown ) (unknown) Result panel 124 (unknown) (no date) (unknown) All (no value) (units unknown ) (unknown) Result panel 125 (unknown) (no date) (unknown) All (no value) (units unknown ) (unknown) Result panel 126 (unknown) (no date) (unknown) All (no value) (units unknown ) (unknown) Result panel 127 (unknown) (no date) (unknown) All (no value) (units unknown ) (unknown) Result panel 128 (unknown) (no date) (unknown) All (no value) (units unknown ) (unknown) Result panel 129 (unknown) (no date) (unknown) All (no value) (units unknown ) (unknown) Result panel 130 (unknown) (no date) (unknown) All (no value) (units unknown ) (unknown) Result panel 131 (unknown) (no date) (unknown) All (no value) (units unknown ) (unknown) Result panel 132 (unknown) (no date) (unknown) All (no value) (units unknown ) (unknown) Result panel 133 (unknown) (no date) (unknown) All (no value) (units unknown ) (unknown) Result panel 134 (unknown) (no date) (unknown) All (no value) (units unknown ) (unknown) Result panel 135 (unknown) (no date) (unknown) All (no value) (units unknown ) (unknown) Result panel 136 (unknown) (no date) (unknown) All (no value) (units unknown ) (unknown) Result panel 137 (unknown) (no date) (unknown) All (no value) (units unknown ) (unknown) Result panel 138 (unknown) (no date) (unknown) All (no value) (units unknown ) (unknown) Result panel 139 (unknown) (no date) (unknown) All (no value) (units unknown ) (unknown) Result panel 140 (unknown) (no date) (unknown) All (no value) (units unknown ) (unknown) Result panel 141 (unknown) (no date) (unknown) All (no value) (units unknown ) (unknown) Result panel 142 (unknown) (no date) (unknown) All (no value) (units unknown ) (unknown) Result panel 143 (unknown) (no date) (unknown) All (no value) (units unknown ) (unknown) Result panel 144 (unknown) (no date) (unknown) All (no value) (units unknown ) (unknown) Result panel 145 (unknown) (no date) (unknown) All (no value) (units unknown ) (unknown) Result panel 146 (unknown) (no date) (unknown) All (no value) (units unknown ) (unknown) Result panel 147 (unknown) (no date) (unknown) All (no value) (units unknown ) (unknown) Result panel 148 (unknown) (no date) (unknown) All (no value) (units unknown ) (unknown) Result panel 149 (unknown) (no date) (unknown) All (no value) (units unknown ) (unknown) Result panel 150 (unknown) (no date) (unknown) All (no value) (units unknown ) (unknown) Result panel 151 (unknown) (no date) (unknown) All (no value) (units unknown ) (unknown) Result panel 152 (unknown) (no date) (unknown) All (no value) (units unknown ) (unknown) Result panel 153 (unknown) (no date) (unknown) All (no value) (units unknown ) (unknown) Result panel 154 (unknown) (no date) (unknown) All (no value) (units unknown ) (unknown) Result panel 155 (unknown) (no date) (unknown) All (no value) (units unknown ) (unknown) Result panel 156 (unknown) (no date) (unknown) All (no value) (units unknown ) (unknown) Result panel 157 (unknown) (no date) (unknown) All (no value) (units unknown ) (unknown) Result panel 158 (unknown) (no date) (unknown) All (no value) (units unknown ) (unknown) Social History date description facility 2022-06-17 00:00 Unknown if ever smoked All Vital Signs No information.
[2022-06-17] MEDS ORDERED: iohexoL-300 100 ML VIAL IVP ONE (21:07)
--- NOTE | 2022-06-17 21:12 | CT Report ---
PROCEDURE: Head W/O Stroke Protocol INDICATIONS: Altered mental status. Found down and unresponsive. TECHNIQUE: Noncontrast 4.5 mm thick angled axial sections acquired from the foramen magnum to the vertex, with c oronal reformats. For radiation dose reduction, the following was used: automated exposure control, adjustment of mA and/or kV according to patient size. COMPARISON: FINDINGS: Image quality: There is streak artifact seen through the skull base. Motion artifact is noted. CSF spaces: Basal cisterns are patent. No extra-axial fluid collections. Ventricles are normal in size and shape. Brain: No midline shift. No intracranial masses or hemorrhage. Rehman-white matter interface is norm al. Skull and face: Calvarium and visualized facial bones are intact, without suspicious lesions. Sinuses: Visualized sinuses and mastoids are clear. A left-sided sorin bullosa is incidentally note d. An endotracheal tube and a nasogastric tube are partially seen. IMPRESSION: No intracranial hemorrhage is seen. No significant intracranial abnormality is seen. Endotracheal tube and nasogastric tube partially seen. Note: Case discussed by telephone with Dr. Laura at 8:10 PM [place] time on 06/17/2022. This study fulfills neurological imaging criteria for inclusion or exclusion of acute stroke therapie s based on available published neurological imaging guidelines. Reviewed by: Steven Deleon MD on 06/17/2022 8:11 PM [facility] Approved by: Steven Deleon MD on 06/17/2022 8:11 PM [facility] Station ID: [id number]
--- NOTE | 2022-06-17 21:22 | CT Report ---
PROCEDURE: ANGIO HEAD W/WO INDICATIONS: ams CONTRAST: 100 ML OMNI 300 TECHNIQUE: Precontrast 4.5 mm thick angled axial sections acquired from the foramen magnum to the vertex. Afte r the administration of intravenous contrast, 1 mm thick sections acquired through the [place] is. Postcontrast 4.5 mm thick sections then re-acquired from the foramen magnum to the vertex. 3-di mensional krwfdve-ynjwgvmkb-zhwwgqlbos (MIP) and/or volume rendering reformats were acquired of the c entral intracranial vasculature. For radiation dose reduction, the following was used: automated ex posure control, adjustment of mA and/or kV according to patient size. COMPARISON: Correlation is made with the accompanying imaging from the same day. FINDINGS: Image quality: There is streak artifact seen through the skull base. Anterior circulation: Intracranial internal carotid arteries demonstrate generalized atherosclerotic irregularity and calcification. 250% narrowing can be seen on each side. 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 The flow within the paired anterior cerebral arteries is otherwise normal and symmetric. The flow within the middle cerebral arteries is normal and symmetric. The anterior communicating ar dominic is seen. No aneurysms are seen. Posterior circulation: Visualized portions of the vertebral arteries demonstrate normal caliber, and join to form a normal appearing basilar artery. Flow within the posterior cerebral arteries is norm al and symmetric. No aneurysms are seen. CSF spaces: Ventricles are normal in size and shape. Basal cisterns are patent. No extra-axial flu id collections. Brain: No midline shift. No intracranial bleeds or masses. Rehman-white matter interface appears int act. Skull and face: Calvarium and facial bones appear intact, without suspicious lesions. Sinuses: Visualized sinuses and mastoids are clear. There is partial visualization of an endotracheal tube and a nasogastric tube. IMPRESSION: No significant intracranial arterial abnormalities are seen. Reviewed by: Steven Deleon MD on 06/17/2022 8:20 PM [facility] Approved by: Steven Deleon MD on 06/17/2022 8:20 PM [facility] Station ID: [id number]
--- NOTE | 2022-06-17 21:29 | CT Report ---
PROCEDURE: ANGIO NECK W INDICATIONS: ams CONTRAST: 100 ML OMNI 300 TECHNIQUE: After the administration of intravenous contrast, 1.5 mm axial sections acquired from the aortic arch to the [place] of [place]. Coronal 3-D maximum intensity projection (MIP) and/or volume rendering ref ormats were then performed. For radiation dose reduction, the following was used: automated exposur e control, adjustment of mA and/or kV according to patient size. COMPARISON: Correlation is made with the accompanying imaging from the same day. FINDINGS: Image quality: Excellent. Carotid system: The great vessels demonstrate a conventional anatomy as they arise from the aortic a rc. Atherosclerotic calcification is seen. 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 The more dis robi subclavian artery is patent, yet the flow within it is reduced, as demonstrated on series 4 image 101. The common carotid arteries demonstrate normal calibers and courses. The bifurcation regions demonst rate atherosclerotic irregularity and calcification. There is up to 90% narrowing seen involving the left proximal internal carotid artery, as on series 2 image 153. On the right, there is approximately 50% narrowing seen. There is overall decreased flow within the left internal carotid artery compared to the right internal carotid artery. Posterior circulation: The origins of the vertebral arteries appear patent. The more superior porti ons of the vertebral arteries demonstrate normal course and caliber. Note is made of a delayed phase of contrast enhancement within the left vertebral artery compared to the right. Soft tissues: Visualized neck soft tissues demonstrate no suspicious abnormalities. The thyroid is small in overall not well seen. Emphysematous changes can be seen at the lung apices. Dependent groundglass opacity can be seen withi n the visualized upper lungs. An endotracheal tube and a nasogastric tube are partially seen. The tip of endotracheal tube is seen 3 to 4 cm above the [place]. Bones: No suspicious bony lesions. Visualized cervical spine appears normally aligned. Age-approp riate degenerative changes are seen. IMPRESSION: Up to 90% narrowing seen involving left proximal internal carotid artery. 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 Furthermore, there is a delayed phase of contrast enhancement within the left vertebral artery compared to the right. 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 Dependent groundglass opacity can be seen within the visualized upper lungs, which is attributed to p ulmonary edema. Additional findings: Emphysematous changes Endotracheal tube Nasogastric tube The estimate of stenosis included in the report of the imaging study was calculated using the NASCET method Reviewed by: Steven Deleon MD on 06/17/2022 8:28 PM [facility] Approved by: Steven Deleon MD on 06/17/2022 8:28 PM [facility] Station ID: [id number]
[2022-06-17 21:35] LABS: MUDS CUTOFF CONCENTRATIONS CUTOFF CONC BELOW:
[2022-06-17 21:37] LABS: BILIRUBIN,URINE NEGATIVE (NEGATIVE); GLUCOSE, URINE (UA) NEGATIVE (NEGATIVE); KETONES,URINE (UA) NEGATIVE (NEGATIVE); LEUKOCYTE ESTERASE, URINE NEGATIVE (NEGATIVE); NITRITE,URINE NEGATIVE (NEGATIVE); OCCULT BLOOD,URINE NEGATIVE (NEGATIVE); PH,URINE 6.5 PH (5.0-7.5); PROTEIN,URINE 100 mg/dL (NEGATIVE); UROBILINOGEN,URINE 0.2 (NORMAL) E.U./dL (NORMAL)
[2022-06-17 21:38] LABS: THYROID STIMULATING HORMONE 110.78 uIU/mL (0.34-5.60)
[2022-06-17 21:42] LABS: CLARITY,URINE CLEAR (CLEAR)
[2022-06-17 21:50] LABS: AMPHETAMINE SCREEN,URINE NEGATIVE (NEGATIVE); BARBITURATE SCREEN,UR NEGATIVE (NEGATIVE); BENZODIAZEPINES SCREEN, URINE NEGATIVE (NEGATIVE); COCAINE SCREEN URINE NEGATIVE (NEGATIVE); METHADONE SCREEN, URINE NEGATIVE (NEGATIVE); METHAMPHETAMINES SCREEN, URINE NEGATIVE (NEGATIVE); OPIATE SCREEN, URINE NEGATIVE (NEGATIVE); OXYCODONE SCREEN, URINE NEGATIVE (NEGATIVE); PROPOXYPHENE SCREEN, URINE NEGATIVE (NEGATIVE); THC CANNABINOID SCREEN, URINE NEGATIVE (NEGATIVE); TRICYCLIC ANTIDEPRESSANT,URINE NEGATIVE (NEGATIVE)
[2022-06-17 21:54] LABS: BACTERIA,URINE None Seen /HPF (None Seen); RBC,URINE None Seen /HPF (0-5); SQUAMOUS EPITHELIAL CELL,UR RARE Squamous (<= Few); WBC,URINE 0-3 /HPF (0-5)
[2022-06-17 22:35] LABS: B. PARAPERTUSSIS- RESP PCR PAN NOT DETECTED; B. PERTUSSIS- RESP PCR PANEL NOT DETECTED; C. PNEUMONIAE- RESP PCR PANEL NOT DETECTED; CORONAVIRUS 229E-RESP PCR NOT DETECTED; CORONAVIRUS HKU1-RESP PCR NOT DETECTED; CORONAVIRUS NL63-RESP PCR NOT DETECTED; CORONAVIRUS OC43-RESP PCR NOT DETECTED; HUMAN METAPNEUMOVIRUS NOT DETECTED; INFLUENZA A- RESP PCR PANEL NOT DETECTED; INFLUENZA B - RESP PCR PANEL NOT DETECTED; M. PNEUMONIAE- RESP PCR PANEL NOT DETECTED; PARAINFLUENZA VIRUS 1 NOT DETECTED; PARAINFLUENZA VIRUS 2 NOT DETECTED; PARAINFLUENZA VIRUS 3 NOT DETECTED; PARAINFLUENZA VIRUS 4 NOT DETECTED; RHINOVIRUS/ENTEROVIRUS NOT DETECTED; RSV- RESP PCR PANEL NOT DETECTED; SARS-CoV-2 -RESP PCR PANEL NOT DETECTED
[2022-06-17] MEDS ORDERED: LEVOTHYROXINE 100 MCG VIAL IVP STA (23:18)
[2022-06-17] MEDS ORDERED: ASPIRIN CHEW 81 MG TABLET NG STA (23:18)
[2022-06-17] MEDS ORDERED: ATORVASTATIN 40 MG TABLET NG STA (23:18)
[2022-06-17] MEDS ORDERED: HYDROCORTISONE SUCCINATE 100 MG/2 ML VIAL IVP STA (23:19)
[2022-06-17] MEDS ORDERED: IPRATROPIUM/ALBUTEROL 3 ML NEB INH PRN (23:45)
--- NOTE | 2022-06-17 23:57 | HISTORY & PHYSICAL EXAMINATION ---
Chief Complaint - Chief Complaint Chief Complaint: Acute CVA History of Present Illness - Admitted From Admitted From:: Home - History Obtained From Records Reviewed: Yes History obtained from: Pateint milagro Nichelle and Sherrill, Chart review and discussionwither Exam Limitations: Sunny is inubated - History of Present Illness HPI Comment/Other: "76-year-old woman with history of A-fib, reportedly not currently on any medications because of lost to follow-up was found down today. She was intubated prior to arrival. CPR was performed on scene but was reportedly not pulseless for EMS. No further history is available. No family available initially.76-year-old woman who presents in coma with A-fib with RVR. She appears to have aspirated. There is a Rodrick tube in place with an air leak so we reintubated her with an endotracheal tube. Initial thought given that she was vomiting was for most likely a head bleed. Given that she was initially hypertensive she was administered some labetalol. Periintubation she became hypotensive down to 50/30 or so and was administered push dose epinephrine, 50 mcg. Subsequently was started on Norepinephrine drip via a expeditiously but sterilely placed right IJ central line. On return from CT her blood pressure was back up to 150/80 so the Levophed was stopped. She also had converted into normal sinus rhythm. Daughter arrived at the bedside And an independent history was taken from her. She heard a thud upstairs at 1830 which she thought was the cat. Subsequently went upstairs around 7 and found her on the floor in her bedroom. Subsequently I spoke with the [place] telestroke neurologist who looked at his imaging. He feels that there is early barron-white changes on the right and distal occlusion on the right that does not fit criteria for a large vessel occlusion. He recommends transfer to a neuro ICU but does not recommend TNK or Code IR transfer. The daughter at the bedside had never discussed goals of care with her mom. But she spoke with her sister, the patient's other daughter who I spoke with by phone and had discussed goals of care. She did not want super aggressive measures or heroic measures. [place], watchful waiting in our ICU versus a transition to comfort care and she opted for the middle option." I had a conference call with both daughters, Nichelle at bedside, and Sherrill who works as a clinical research computing specialist for [employer]. I had a d etail talk with both daughter, patient had decent ADl, her episode of presentation as described above, she has been non compliant with meds, complaitns of feeling cold for over a year, stopped taking Xarelto 2 mos ago, I told ER MD and daughters best to transfer to higher level of care, both daughte rs in agreement that they would not want anyheroics or have their mom transferred out of [place]. patient is an active smoker, hx of hyperlioidemia, hx of non compliance to meds, hx of paroxsmal a fib, hypothyroidism and poor dentition. also has a sticky valve as per hemalatha but no other complaints Family understand patient will get better care at a stroke centrer and may need to see a vascular surgeon for Right ICA 90% stenosis. Patient has bertin inutbated in the field. TSH is 110 P History - Past Medical History Cardiovascular: reports: Hypertension, High cholesterol Endocrine/Autoimmune: reports: HyPOthyroidism - POLST Patient has POLST: No Meds/Allgy - Home Medications Home Medications: Ambulatory Orders Medication Instructions Recorded Confirmed Aspirin EC [Ecotrin] 81 mg PO DAILY 06/25/21 06/25/21 Levothyroxine Sodium [Synthroid] 100 mcg PO DAILY 06/25/21 06/25/21 Rivaroxaban [Xarelto] 20 mg PO DAILY 30 Days #30 tablet 06/25/21 Rosuvastatin Calcium [Crestor] 10 mg PO DAILY 06/25/21 06/25/21 diltiaZEM CD [Cardizem Cd] 120 mg PO DAILY 30 Days #30 cap 06/25/21 - Allergies Allergies/Adverse Reactions: Allergies Allergy/AdvReac Type Severity Reaction Status Date / Time ampicillin Allergy Hives Verified 06/25/21 13:51 codeine Allergy Hives Verified 06/25/21 13:51 Review of Systems - Constitutional Constitutional: reports: Other (14 system review attenpted, patiet not elgible jose armando will continue to monitgor closely) Prior Level of Functionality: Godo with ADl Exam - Vital Signs Vital Signs: Vital Signs x48h Temp Pulse Resp BP Pulse Ox 06/17/22 23:30 35.3 C L 52 L 16 127/87 H 99 06/17/22 23:15 35.1 C L 50 L 16 132/75 H 98 06/17/22 23:00 34.9 C L 51 L 16 119/78 100 06/17/22 22:45 34.8 C L 52 L 19 135/76 H 100 06/17/22 22:30 34.7 C L 53 L 16 139/90 H 100 06/17/22 22:15 34.5 C L 52 L 16 134/76 H 100 06/17/22 22:00 34.4 C L 53 L 14 141/79 H 100 06/17/22 21:45 34.3 C L 50 L 14 151/87 H 100 06/17/22 21:42 65 06/17/22 21:30 33.5 C L 50 L 18 149/94 H 100 06/17/22 21:15 50 L 20 157/94 H 100 06/17/22 20:55 65 20 159/88 H 100 06/17/22 20:50 49 L 20 150/94 H 100 06/17/22 20:45 48 L 20 134/74 H 100 06/17/22 20:40 47 L 20 120/67 100 06/17/22 20:30 49 L 20 111/62 100 06/17/22 20:25 47 L 20 86/49 L 99 06/17/22 20:13 107 H 20 75/53 L 99 06/17/22 20:09 116 H 20 99/64 97 06/17/22 20:08 102 H 06/17/22 20:03 88/60 L 06/17/22 20:00 94 14 55/40 L 95 06/17/22 19:53 91 73/62 L 100 06/17/22 19:37 34.7 C L 130 H 19 181/99 H 80 L - Physical Exam General Appearance: positive: Other (Intubated and comfortable) Respiratory: positive: No respiratory distress, Breath sounds nml Cardiovascular: positive: No murmur, Bradycardia, Systolic murmur Abdomen: positive: Non-tender, No organomegaly Skin: positive: No rash, Cyanosis Sepsis Event Note (H) - Evaluation Current Stage of Sepsis: Ruled out Conclusion/Plan - Problem List (1) Hyperlipemia Conclusion/Plan: Lipito 80 mg qhs (2) Hypertension Conclusion/Plan: Permissive HTN resulted home meds after a week (3) Atrial fibrillation with RVR Conclusion/Plan: Currently in SR and Xarelto will be on hold till cleared by Neuurology (4) Cerebrovascular accident (CVA) Conclusion/Plan: Repeat CT scan in 24 hours Lipitor ASA Permissive HTN midodrine prn (5) Respiratory failure Conclusion/Plan: will be going home with Xareltoand scripts for narcotics, Continue mechanical venilator ] - Lab Results Fish Bones: 06/17/22 19:40 06/17/22 19:40
[2022-06-18] MEDS ORDERED: MIDODRINE 2.5 MG TABLET PO PRN (00:14)
[2022-06-18] MEDS: SODIUM CHLORIDE FLUSH 0.9% 10 ML SYRINGE IVP PRN ×7 (01:36→06:49)
[2022-06-18] MEDS: SODIUM CHLORIDE FLUSH 0.9% 10 ML SYRINGE IVP SCH ×3 (01:36→18:12)
[2022-06-18] MEDS: SODIUM CHLORIDE 0.9% 1,000 ML IV SCH ×2 (01:37→13:02)
[2022-06-18] MEDS: FAMOTIDINE 20 MG/2 ML VIAL IVP SCH ×3 (01:54→21:06)
[2022-06-18] MEDS: PROPOFOL 1000 MG/100 ML 1,000 MG/100 ML BOTTLE IV STA ×2 (02:01→10:41)
[2022-06-18 05:02] LABS: CALCIUM, IONIZED 1.13 mmol/L (1.15-1.33); VBG PH 7.287 (7.31-7.41)
[2022-06-18 05:05] LABS: BASOPHILS % (AUTO) 0.3 %; HCT - HEMATOCRIT 38.5 % (37.0-47.0); LYMPHOCYTES # (AUTO) 0.3 10^3/uL (1.5-3.5); LYMPHOCYTES % (AUTO) 2.4 %; MEAN CORPUSCULAR HEMOGLOBIN 33.2 pg (27.0-31.0); MEAN CORPUSCULAR HGB CONC 33.8 g/dL (32.0-36.0); MEAN CORPUSCULAR VOLUME 98.5 fL (81.0-99.0); MEAN PLATELET VOLUME 9.4 fL (7.9-10.8); MONOCYTES # (AUTO) 0.8 10^3/uL (0.0-1.0); MONOCYTES % (AUTO) 5.5 %; NEUTROPHILS # (AUTO) 12.8 10^3/uL (1.5-6.6); NEUTROPHILS % (AUTO) 91.6 %; PLT - PLATELET COUNT 156 10^3/uL (130-450); RED BLOOD COUNT 3.91 10^6/uL (4.20-5.40); RED CELL DISTRIBUTION WIDTH 13.6 % (12.0-15.0); WHITE BLOOD COUNT 13.9 x10^3/uL (4.8-10.8)
[2022-06-18 05:10] LABS: ALBUMIN 3.5 g/dL (3.2-5.5); ALBUMIN/GLOBULIN RATIO 1.5 (1.0-2.2); BILIRUBIN,TOTAL 1.9 mg/dL (0.2-1.0); CALCIUM 8.4 mg/dL (8.5-10.3); CREATININE 0.9 mg/dL (0.4-1.0); PHOSPHORUS 3.2 mg/dL (2.5-4.6); POTASSIUM 4.2 mmol/L (3.5-5.0); TOTAL PROTEIN 5.9 g/dL (6.7-8.2)
[2022-06-18] MEDS: PANTOPRAZOLE 40 MG VIAL IVP SCH (06:39)
[2022-06-18] MEDS: ATORVASTATIN 40 MG TABLET NG SCH (08:24)
[2022-06-18] MEDS: ASPIRIN 325 MG TABLET PO SCH (08:24)
[2022-06-18] MEDS: HYDROCORTISONE SUCCINATE 100 MG/2 ML VIAL IVP SCH (08:25)
[2022-06-18] MEDS: NOREPINEPHRINE/0.9 % NS 8 MG/250 ML BAG IV SCH (08:40)
[2022-06-18 09:32] LABS: ABG PCO2 31 mmHg (34-45); ABG PH 7.39 (7.35-7.45)
[2022-06-18 09:33] LABS: ABG BASE EXCESS -5.5 mmol/L (-2.0-3.0); ABG HCO3 18.4 mmol/L (22.0-26.0); ABG MODE OF VENTILATION ASSIST/CONTROL; ABG OXYGEN SATURATION 99 % (94-98); ABG RESPIRATORY RATE 16 b/min; ABG TCO2 19.4 MMOL/L (21.0-29.0); ALLEN TEST POSITIVE
[2022-06-18 09:36] LABS: ABG PO2 184 mmHg (80-100)
[2022-06-18] MEDS: ACETAMINOPHEN 325 MG TABLET PO PRN (13:00)
--- NOTE | 2022-06-18 14:33 | PROVIDER PROGRESS NOTE ---
Subjective - Subjective Pt reports feeling: No change (Sedated on IV propofol, ET tube in place and on the mechanical ventilator) Objective - Vital Signs/Intake & Output Reviewed Vital Signs: Yes Vital Signs: Vital Signs Temp Pulse Pulse Resp BP Pulse Ox 06/18/22 14:00 37.9 C 44 L 16 106/54 L 100 06/18/22 13:30 38.0 C H 20 100 06/18/22 13:00 38.0 C H 50 L 20 122/60 100 06/18/22 12:30 37.9 C 20 06/18/22 12:00 37.9 C 67 20 104/67 100 06/18/22 11:38 46 L 06/18/22 11:30 37.6 C 18 100 06/18/22 11:00 37.6 C 46 L 18 95/48 L 100 06/18/22 10:45 18 L 93/51 L Intake & Output: Intake & Output 06/15/22 06/16/22 06/17/22 06/18/22 23:59 23:59 23:59 23:59 Intake Total 4.375 3145.456 Output Total 889 Balance 4.375 2256.456 - Objective General Appearance: positive: Other (Sedated, on the vent, appears disheveled) Eyes Bilateral: positive: No lid inflammation ENT: positive: Other (ET tube and NG tube in) Neck: positive: Nml inspection Respiratory: positive: No respiratory distress, Breath sounds nml Cardiovascular: positive: Regular rate & rhythm, No murmur Abdomen: positive: No distention Skin: positive: Warm, Dry Extremities: positive: No pedal edema Neurologic/Psychiatric: positive: Other (Sedated on propofol, when propofol is "light", she moves the right arm spontaneously) - Lab Results Fish Bones: 06/18/22 04:45 06/18/22 04:45 Other Labs: Lab Results x24hrs 06/18/22 06/18/22 06/18/22 Range/Units 09:22 06:50 04:45 WBC (4.8-10.8) x10^3/uL RBC (4.20-5.40) 10^6/uL Hgb (12.0-16.0) g/dL Hct (37.0-47.0) % MCV (81.0-99.0) fL MCH (27.0-31.0) pg MCHC (32.0-36.0) g/dL RDW (12.0-15.0) % Plt Count (130-450) 10^3/uL MPV (7.9-10.8) fL Neut # (Auto) (1.5-6.6) 10^3/uL Lymph # (Auto) (1.5-3.5) 10^3/uL [place] # (Auto) (0.0-1.0) 10^3/uL Eos # (Auto) (0.0-0.7) 10^3/uL Baso # (Auto) (0.0-0.1) 10^3/uL Absolute Nucleated RBC x10^3/uL Nucleated RBC % /100WBC PT (9.9-12.6) secs INR (0.8-1.2) Bld Gas Analysis Time 0930 Sample Site LEFT RADIAL ABG pH 7.39 (7.35-7.45) ABG pCO2 31 L (34-45) mmHg ABG pO2 184 H* (80-100) mmHg ABG HCO3 18.4 L (22.0-26.0) mmol/L ABG Total CO2 19.4 L (21.0-29.0) MMOL/L ABG O2 Saturation 99 H (94-98) % ABG Base Excess -5.5 L (-2.0-3.0) mmol/L Ruben Test POSITIVE VBG pH 7.287 L (7.31-7.41) Ionized Calcium 1.13 L (1.15-1.33) mmol/L Respiration Rate 16 b/min O2 Delivery Device VENTILATOR Vent Mode ASSIST/CONTROL FiO2 80.00 Tidal Volume 400 mL PEEP 5 cmH2O Sodium (135-145) mmol/L Potassium (3.5-5.0) mmol/L Chloride (101-111) mmol/L Carbon Dioxide (21-32) mmol/L Anion Gap (6-13) BUN (6-20) mg/dL Creatinine (0.4-1.0) mg/dL Estimated GFR (MDRD) (>89) Glucose (70-100) mg/dL Calcium (8.5-10.3) mg/dL Phosphorus (2.5-4.6) mg/dL Magnesium (1.7-2.8) mg/dL Total Bilirubin (0.2-1.0) mg/dL AST (10-42) IU/L ALT (10-60) IU/L Alkaline Phosphatase (42-121) IU/L Troponin I High Sens 40.5 H* (2.3-14.8) ng/L Total Protein (6.7-8.2) g/dL Albumin (3.2-5.5) g/dL Globulin (2.1-4.2) g/dL Albumin/Globulin Ratio (1.0-2.2) TSH (0.34-5.60) uIU/mL Thyroxine (T4) (6.09-12.23) ug/dL Urine Color Urine Clarity (CLEAR) Urine pH (5.0-7.5) PH Ur Specific [place] (1.002-1.030) Urine Protein (NEGATIVE) mg/dL Urine Glucose (UA) (NEGATIVE) mg/dL Urine Ketones (NEGATIVE) mg/dL Urine Occult Blood (NEGATIVE) Urine Nitrite (NEGATIVE) Urine Bilirubin (NEGATIVE) Urine Urobilinogen (NORMAL) E.U./dL Ur Leukocyte Esterase (NEGATIVE) Urine RBC (0-5) /HPF Urine WBC (0-5) /HPF Ur Squamous Epith Cells (<= Few) Urine Bacteria (None Seen) /HPF Ur Microscopic Review Urine Culture Comments Nasal Adenovirus (PCR) Nasal B. parapertussis DNA (PCR) Nasal Coronavir 229E PCR Nasal Coronavir HKU1 PCR Nasal Coronavir NL63 PCR Nasal Coronavir OC43 PCR Nasal Enterovir/Rhinovir PCR Nasal Influenza B PCR Nasal Influenza A PCR Nasal Parainfluen 1 PCR Nasal Parainfluen 2 PCR Nasal Parainfluen 3 PCR Nasal Parainfluen 4 PCR Nasal RSV (PCR) Nasal Screen MRSA (PCR) (NEGATIVE) Nasal B.pertussis DNA PCR Nasal C.pneumoniae (PCR) Benjamin Human Metapneumo PCR Nasal M.pneumoniae (PCR) Nasal SARS-CoV-2 (PCR) Salicylates mg/dL Urine Opiates Screen (NEGATIVE) Ur Oxycodone Screen (NEGATIVE) Urine Methadone Screen (NEGATIVE) Ur Propoxyphene Screen (NEGATIVE) Acetaminophen (10-30) ug/mL Ur Barbiturates Screen (NEGATIVE) Ur Tricyclics Screen (NEGATIVE) Ur Phencyclidine Scrn (NEGATIVE) Ur Amphetamine Screen (NEGATIVE) U Methamphetamines Scrn (NEGATIVE) U Benzodiazepines Scrn (NEGATIVE) Urine Cocaine Screen (NEGATIVE) U Cannabinoids Screen (NEGATIVE) Ethyl Alcohol mg/dL 06/18/22 06/18/22 06/18/22 Range/Units 04:45 04:45 01:14 WBC 13.9 H (4.8-10.8) x10^3/uL RBC 3.91 L (4.20-5.40) 10^6/uL Hgb 13.0 (12.0-16.0) g/dL Hct 38.5 (37.0-47.0) % MCV 98.5 (81.0-99.0) fL MCH 33.2 H (27.0-31.0) pg MCHC 33.8 (32.0-36.0) g/dL RDW 13.6 (12.0-15.0) % Plt Count 156 (130-450) 10^3/uL MPV 9.4 (7.9-10.8) fL Neut # (Auto) 12.8 H (1.5-6.6) 10^3/uL Lymph # (Auto) 0.3 L (1.5-3.5) 10^3/uL [place] # (Auto) 0.8 (0.0-1.0) 10^3/uL Eos # (Auto) 0.0 (0.0-0.7) 10^3/uL Baso # (Auto) 0.0 (0.0-0.1) 10^3/uL Absolute Nucleated RBC 0.00 x10^3/uL Nucleated RBC % 0.0 /100WBC PT (9.9-12.6) secs INR (0.8-1.2) Bld Gas Analysis Time Sample Site ABG pH (7.35-7.45) ABG pCO2 (34-45) mmHg ABG pO2 (80-100) mmHg ABG HCO3 (22.0-26.0) mmol/L ABG Total CO2 (21.0-29.0) MMOL/L ABG O2 Saturation (94-98) % ABG Base Excess (-2.0-3.0) mmol/L Ruben Test VBG pH (7.31-7.41) Ionized Calcium (1.15-1.33) mmol/L Respiration Rate b/min O2 Delivery Device Vent Mode FiO2 Tidal Volume mL PEEP cmH2O Sodium 136 (135-145) mmol/L Potassium 4.2 (3.5-5.0) mmol/L Chloride 109 (101-111) mmol/L Carbon Dioxide 21 (21-32) mmol/L Anion Gap 6.0 (6-13) BUN 23 H (6-20) mg/dL Creatinine 0.9 (0.4-1.0) mg/dL Estimated GFR (MDRD) 61 L (>89) Glucose 145 H (70-100) mg/dL Calcium 8.4 L (8.5-10.3) mg/dL Phosphorus 3.2 (2.5-4.6) mg/dL Magnesium 2.0 (1.7-2.8) mg/dL Total Bilirubin 1.9 H (0.2-1.0) mg/dL AST 54 H (10-42) IU/L ALT 49 (10-60) IU/L Alkaline Phosphatase 48 (42-121) IU/L Troponin I High Sens 48.0 H* (2.3-14.8) ng/L Total Protein 5.9 L (6.7-8.2) g/dL Albumin 3.5 (3.2-5.5) g/dL Globulin 2.4 (2.1-4.2) g/dL Albumin/Globulin Ratio 1.5 (1.0-2.2) TSH (0.34-5.60) uIU/mL Thyroxine (T4) (6.09-12.23) ug/dL Urine Color Urine Clarity (CLEAR) Urine pH (5.0-7.5) PH Ur Specific [place] (1.002-1.030) Urine Protein (NEGATIVE) mg/dL Urine Glucose (UA) (NEGATIVE) mg/dL Urine Ketones (NEGATIVE) mg/dL Urine Occult Blood (NEGATIVE) Urine Nitrite (NEGATIVE) Urine Bilirubin (NEGATIVE) Urine Urobilinogen (NORMAL) E.U./dL Ur Leukocyte Esterase (NEGATIVE) Urine RBC (0-5) /HPF Urine WBC (0-5) /HPF Ur Squamous Epith Cells (<= Few) Urine Bacteria (None Seen) /HPF Ur Microscopic Review Urine Culture Comments Nasal Adenovirus (PCR) Nasal B. parapertussis DNA (PCR) Nasal Coronavir 229E PCR Nasal Coronavir HKU1 PCR Nasal Coronavir NL63 PCR Nasal Coronavir OC43 PCR Nasal Enterovir/Rhinovir PCR Nasal Influenza B PCR Nasal Influenza A PCR Nasal Parainfluen 1 PCR Nasal Parainfluen 2 PCR Nasal Parainfluen 3 PCR Nasal Parainfluen 4 PCR Nasal RSV (PCR) Nasal Screen MRSA (PCR) (NEGATIVE) Nasal B.pertussis DNA PCR Nasal C.pneumoniae (PCR) Benjamin Human Metapneumo PCR Nasal M.pneumoniae (PCR) Nasal SARS-CoV-2 (PCR) Salicylates mg/dL Urine Opiates Screen (NEGATIVE) Ur Oxycodone Screen (NEGATIVE) Urine Methadone Screen (NEGATIVE) Ur Propoxyphene Screen (NEGATIVE) Acetaminophen (10-30) ug/mL Ur Barbiturates Screen (NEGATIVE) Ur Tricyclics Screen (NEGATIVE) Ur Phencyclidine Scrn (NEGATIVE) Ur Amphetamine Screen (NEGATIVE) U Methamphetamines Scrn (NEGATIVE) U Benzodiazepines Scrn (NEGATIVE) Urine Cocaine Screen (NEGATIVE) U Cannabinoids Screen (NEGATIVE) Ethyl Alcohol mg/dL 06/18/22 06/17/22 06/17/22 Range/Units 01:10 21:30 21:20 WBC (4.8-10.8) x10^3/uL RBC (4.20-5.40) 10^6/uL Hgb (12.0-16.0) g/dL Hct (37.0-47.0) % MCV (81.0-99.0) fL MCH (27.0-31.0) pg MCHC (32.0-36.0) g/dL RDW (12.0-15.0) % Plt Count (130-450) 10^3/uL MPV (7.9-10.8) fL Neut # (Auto) (1.5-6.6) 10^3/uL Lymph # (Auto) (1.5-3.5) 10^3/uL [place] # (Auto) (0.0-1.0) 10^3/uL Eos # (Auto) (0.0-0.7) 10^3/uL Baso # (Auto) (0.0-0.1) 10^3/uL Absolute Nucleated RBC x10^3/uL Nucleated RBC % /100WBC PT (9.9-12.6) secs INR (0.8-1.2) Bld Gas Analysis Time Sample Site ABG pH (7.35-7.45) ABG pCO2 (34-45) mmHg ABG pO2 (80-100) mmHg ABG HCO3 (22.0-26.0) mmol/L ABG Total CO2 (21.0-29.0) MMOL/L ABG O2 Saturation (94-98) % ABG Base Excess (-2.0-3.0) mmol/L Ruben Test VBG pH (7.31-7.41) Ionized Calcium (1.15-1.33) mmol/L Respiration Rate b/min O2 Delivery Device Vent Mode FiO2 Tidal Volume mL PEEP cmH2O Sodium (135-145) mmol/L Potassium (3.5-5.0) mmol/L Chloride (101-111) mmol/L Carbon Dioxide (21-32) mmol/L Anion Gap (6-13) BUN (6-20) mg/dL Creatinine (0.4-1.0) mg/dL Estimated GFR (MDRD) (>89) Glucose (70-100) mg/dL Calcium (8.5-10.3) mg/dL Phosphorus (2.5-4.6) mg/dL Magnesium (1.7-2.8) mg/dL Total Bilirubin (0.2-1.0) mg/dL AST (10-42) IU/L ALT (10-60) IU/L Alkaline Phosphatase (42-121) IU/L Troponin I High Sens (2.3-14.8) ng/L Total Protein (6.7-8.2) g/dL Albumin (3.2-5.5) g/dL Globulin (2.1-4.2) g/dL Albumin/Globulin Ratio (1.0-2.2) TSH (0.34-5.60) uIU/mL Thyroxine (T4) (6.09-12.23) ug/dL Urine Color YELLOW Urine Clarity CLEAR (CLEAR) Urine pH 6.5 (5.0-7.5) PH Ur Specific [place] 1.010 (1.002-1.030) Urine Protein 100 H (NEGATIVE) mg/dL Urine Glucose (UA) NEGATIVE (NEGATIVE) mg/dL Urine Ketones NEGATIVE (NEGATIVE) mg/dL Urine Occult Blood NEGATIVE (NEGATIVE) Urine Nitrite NEGATIVE (NEGATIVE) Urine Bilirubin NEGATIVE (NEGATIVE) Urine Urobilinogen 0.2 (NORMAL) (NORMAL) E.U./dL Ur Leukocyte Esterase NEGATIVE (NEGATIVE) Urine RBC None Seen (0-5) /HPF Urine WBC 0-3 (0-5) /HPF Ur Squamous Epith Cells RARE Squamous (<= Few) Urine Bacteria None Seen (None Seen) /HPF Ur Microscopic Review INDICATED Urine Culture Comments NOT INDICATED Nasal Adenovirus (PCR) NOT DETECTED Nasal B. parapertussis DNA (PCR) NOT DETECTED Nasal Coronavir 229E PCR NOT DETECTED Nasal Coronavir HKU1 PCR NOT DETECTED Nasal Coronavir NL63 PCR NOT DETECTED Nasal Coronavir OC43 PCR NOT DETECTED Nasal Enterovir/Rhinovir PCR NOT DETECTED Nasal Influenza B PCR NOT DETECTED Nasal Influenza A PCR NOT DETECTED Nasal Parainfluen 1 PCR NOT DETECTED Nasal Parainfluen 2 PCR NOT DETECTED Nasal Parainfluen 3 PCR NOT DETECTED Nasal Parainfluen 4 PCR NOT DETECTED Nasal RSV (PCR) NOT DETECTED Nasal Screen MRSA (PCR) NEGATIVE (NEGATIVE) Nasal B.pertussis DNA PCR NOT DETECTED Nasal C.pneumoniae (PCR) NOT DETECTED Benjamin Human Metapneumo PCR NOT DETECTED Nasal M.pneumoniae (PCR) NOT DETECTED Nasal SARS-CoV-2 (PCR) NOT DETECTED Salicylates mg/dL Urine Opiates Screen NEGATIVE (NEGATIVE) Ur Oxycodone Screen NEGATIVE (NEGATIVE) Urine Methadone Screen NEGATIVE (NEGATIVE) Ur Propoxyphene Screen NEGATIVE (NEGATIVE) Acetaminophen (10-30) ug/mL Ur Barbiturates Screen NEGATIVE (NEGATIVE) Ur Tricyclics Screen NEGATIVE (NEGATIVE) Ur Phencyclidine Scrn NEGATIVE (NEGATIVE) Ur Amphetamine Screen NEGATIVE (NEGATIVE) U Methamphetamines Scrn NEGATIVE (NEGATIVE) U Benzodiazepines Scrn NEGATIVE (NEGATIVE) Urine Cocaine Screen NEGATIVE (NEGATIVE) U Cannabinoids Screen NEGATIVE (NEGATIVE) Ethyl Alcohol mg/dL 06/17/22 06/17/22 06/17/22 Range/Units 20:22 19:40 19:40 WBC (4.8-10.8) x10^3/uL RBC (4.20-5.40) 10^6/uL Hgb (12.0-16.0) g/dL Hct (37.0-47.0) % MCV (81.0-99.0) fL MCH (27.0-31.0) pg MCHC (32.0-36.0) g/dL RDW (12.0-15.0) % Plt Count (130-450) 10^3/uL MPV (7.9-10.8) fL Neut # (Auto) (1.5-6.6) 10^3/uL Lymph # (Auto) (1.5-3.5) 10^3/uL [place] # (Auto) (0.0-1.0) 10^3/uL Eos # (Auto) (0.0-0.7) 10^3/uL Baso # (Auto) (0.0-0.1) 10^3/uL Absolute Nucleated RBC x10^3/uL Nucleated RBC % /100WBC PT (9.9-12.6) secs INR (0.8-1.2) Bld Gas Analysis Time 2026 Sample Site RIGHT RADIAL ABG pH 7.30 L (7.35-7.45) ABG pCO2 41 (34-45) mmHg ABG pO2 107 H (80-100) mmHg ABG HCO3 19.6 L (22.0-26.0) mmol/L ABG Total CO2 20.9 L (21.0-29.0) MMOL/L ABG O2 Saturation 97 (94-98) % ABG Base Excess -6.4 L (-2.0-3.0) mmol/L Ruben Test POSITIVE VBG pH (7.31-7.41) Ionized Calcium (1.15-1.33) mmol/L Respiration Rate 20 b/min O2 Delivery Device VENTILATOR Vent Mode SIMV FiO2 100.00 Tidal Volume 450 mL PEEP 5 cmH2O Sodium 136 (135-145) mmol/L Potassium 4.3 (3.5-5.0) mmol/L Chloride 104 (101-111) mmol/L Carbon Dioxide 23 (21-32) mmol/L Anion Gap 9.0 (6-13) BUN 23 H (6-20) mg/dL Creatinine 1.1 H (0.4-1.0) mg/dL Estimated GFR (MDRD) 48 L (>89) Glucose 198 H (70-100) mg/dL Calcium 8.8 (8.5-10.3) mg/dL Phosphorus (2.5-4.6) mg/dL Magnesium 2.3 (1.7-2.8) mg/dL Total Bilirubin 1.7 H (0.2-1.0) mg/dL AST 40 (10-42) IU/L ALT 29 (10-60) IU/L Alkaline Phosphatase 55 (42-121) IU/L Troponin I High Sens (2.3-14.8) ng/L Total Protein 7.3 (6.7-8.2) g/dL Albumin 4.3 (3.2-5.5) g/dL Globulin 3.0 (2.1-4.2) g/dL Albumin/Globulin Ratio 1.4 (1.0-2.2) TSH 110.78 H (0.34-5.60) uIU/mL Thyroxine (T4) 3.80 L (6.09-12.23) ug/dL Urine Color Urine Clarity (CLEAR) Urine pH (5.0-7.5) PH Ur Specific [place] (1.002-1.030) Urine Protein (NEGATIVE) mg/dL Urine Glucose (UA) (NEGATIVE) mg/dL Urine Ketones (NEGATIVE) mg/dL Urine Occult Blood (NEGATIVE) Urine Nitrite (NEGATIVE) Urine Bilirubin (NEGATIVE) Urine Urobilinogen (NORMAL) E.U./dL Ur Leukocyte Esterase (NEGATIVE) Urine RBC (0-5) /HPF Urine WBC (0-5) /HPF Ur Squamous Epith Cells (<= Few) Urine Bacteria (None Seen) /HPF Ur Microscopic Review Urine Culture Comments Nasal Adenovirus (PCR) Nasal B. parapertussis DNA (PCR) Nasal Coronavir 229E PCR Nasal Coronavir HKU1 PCR Nasal Coronavir NL63 PCR Nasal Coronavir OC43 PCR Nasal Enterovir/Rhinovir PCR Nasal Influenza B PCR Nasal Influenza A PCR Nasal Parainfluen 1 PCR Nasal Parainfluen 2 PCR Nasal Parainfluen 3 PCR Nasal Parainfluen 4 PCR Nasal RSV (PCR) Nasal Screen MRSA (PCR) (NEGATIVE) Nasal B.pertussis DNA PCR Nasal C.pneumoniae (PCR) Benjamin Human Metapneumo PCR Nasal M.pneumoniae (PCR) Nasal SARS-CoV-2 (PCR) Salicylates < 6.0 mg/dL Urine Opiates Screen (NEGATIVE) Ur Oxycodone Screen (NEGATIVE) Urine Methadone Screen (NEGATIVE) Ur Propoxyphene Screen (NEGATIVE) Acetaminophen < 10 L (10-30) ug/mL Ur Barbiturates Screen (NEGATIVE) Ur Tricyclics Screen (NEGATIVE) Ur Phencyclidine Scrn (NEGATIVE) Ur Amphetamine Screen (NEGATIVE) U Methamphetamines Scrn (NEGATIVE) U Benzodiazepines Scrn (NEGATIVE) Urine Cocaine Screen (NEGATIVE) U Cannabinoids Screen (NEGATIVE) Ethyl Alcohol < 5.0 mg/dL 06/17/22 06/17/22 Range/Units 19:40 19:40 WBC 8.7 (4.8-10.8) x10^3/uL RBC 4.32 (4.20-5.40) 10^6/uL Hgb 14.4 (12.0-16.0) g/dL Hct 43.2 (37.0-47.0) % MCV 100.0 H (81.0-99.0) fL MCH 33.3 H (27.0-31.0) pg MCHC 33.3 (32.0-36.0) g/dL RDW 13.2 (12.0-15.0) % Plt Count 227 (130-450) 10^3/uL MPV 9.3 (7.9-10.8) fL Neut # (Auto) 4.7 (1.5-6.6) 10^3/uL Lymph # (Auto) 3.4 (1.5-3.5) 10^3/uL [place] # (Auto) 0.4 (0.0-1.0) 10^3/uL Eos # (Auto) 0.1 (0.0-0.7) 10^3/uL Baso # (Auto) 0.0 (0.0-0.1) 10^3/uL Absolute Nucleated RBC 0.00 x10^3/uL Nucleated RBC % 0.0 /100WBC PT 11.1 (9.9-12.6) secs INR 1.0 (0.8-1.2) Bld Gas Analysis Time Sample Site ABG pH (7.35-7.45) ABG pCO2 (34-45) mmHg ABG pO2 (80-100) mmHg ABG HCO3 (22.0-26.0) mmol/L ABG Total CO2 (21.0-29.0) MMOL/L ABG O2 Saturation (94-98) % ABG Base Excess (-2.0-3.0) mmol/L Ruben Test VBG pH (7.31-7.41) Ionized Calcium (1.15-1.33) mmol/L Respiration Rate b/min O2 Delivery Device Vent Mode FiO2 Tidal Volume mL PEEP cmH2O Sodium (135-145) mmol/L Potassium (3.5-5.0) mmol/L Chloride (101-111) mmol/L Carbon Dioxide (21-32) mmol/L Anion Gap (6-13) BUN (6-20) mg/dL Creatinine (0.4-1.0) mg/dL Estimated GFR (MDRD) (>89) Glucose (70-100) mg/dL Calcium (8.5-10.3) mg/dL Phosphorus (2.5-4.6) mg/dL Magnesium (1.7-2.8) mg/dL Total Bilirubin (0.2-1.0) mg/dL AST (10-42) IU/L ALT (10-60) IU/L Alkaline Phosphatase (42-121) IU/L Troponin I High Sens (2.3-14.8) ng/L Total Protein (6.7-8.2) g/dL Albumin (3.2-5.5) g/dL Globulin (2.1-4.2) g/dL Albumin/Globulin Ratio (1.0-2.2) TSH (0.34-5.60) uIU/mL Thyroxine (T4) (6.09-12.23) ug/dL Urine Color Urine Clarity (CLEAR) Urine pH (5.0-7.5) PH Ur Specific [place] (1.002-1.030) Urine Protein (NEGATIVE) mg/dL Urine Glucose (UA) (NEGATIVE) mg/dL Urine Ketones (NEGATIVE) mg/dL Urine Occult Blood (NEGATIVE) Urine Nitrite (NEGATIVE) Urine Bilirubin (NEGATIVE) Urine Urobilinogen (NORMAL) E.U./dL Ur Leukocyte Esterase (NEGATIVE) Urine RBC (0-5) /HPF Urine WBC (0-5) /HPF Ur Squamous Epith Cells (<= Few) Urine Bacteria (None Seen) /HPF Ur Microscopic Review Urine Culture Comments Nasal Adenovirus (PCR) Nasal B. parapertussis DNA (PCR) Nasal Coronavir 229E PCR Nasal Coronavir HKU1 PCR Nasal Coronavir NL63 PCR Nasal Coronavir OC43 PCR Nasal Enterovir/Rhinovir PCR Nasal Influenza B PCR Nasal Influenza A PCR Nasal Parainfluen 1 PCR Nasal Parainfluen 2 PCR Nasal Parainfluen 3 PCR Nasal Parainfluen 4 PCR Nasal RSV (PCR) Nasal Screen MRSA (PCR) (NEGATIVE) Nasal B.pertussis DNA PCR Nasal C.pneumoniae (PCR) Benjamin Human Metapneumo PCR Nasal M.pneumoniae (PCR) Nasal SARS-CoV-2 (PCR) Salicylates mg/dL Urine Opiates Screen (NEGATIVE) Ur Oxycodone Screen (NEGATIVE) Urine Methadone Screen (NEGATIVE) Ur Propoxyphene Screen (NEGATIVE) Acetaminophen (10-30) ug/mL Ur Barbiturates Screen (NEGATIVE) Ur Tricyclics Screen (NEGATIVE) Ur Phencyclidine Scrn (NEGATIVE) Ur Amphetamine Screen (NEGATIVE) U Methamphetamines Scrn (NEGATIVE) U Benzodiazepines Scrn (NEGATIVE) Urine Cocaine Screen (NEGATIVE) U Cannabinoids Screen (NEGATIVE) Ethyl Alcohol mg/dL - Other Results/Comments Other Results/Comments: EKG done today (I interpreted): Sinus bradycardia, rate 46, left atrial enlargement, deep symmetrical T wave inversions V2 through V6 and flat T waves in the inferolateral leads. Since EKG from 06/17/2022, A-fib with RVR is now absent and the deep anterior T wave inversions are new. Sepsis Event Note (H) - Evaluation Current Stage of Sepsis: Ruled out Assessment/Plan - Problem List (1) Cerebrovascular accident (CVA) Impression: The work-up on presentation in ED shows a stroke in evolution. On exam, she has left-sided neglect. When her Propofol sedation was light, she is moving the right arm and gesturing, she started to move the right leg and le ft leg, the left arm is flaccid. She is moving her neck but does not follow commands. Plan: The family did not want to have her transferred for neurologic ICU care and she was not a TNK candidate. Remain in our ICU, with supportive care including the mechanical ventilator and medical management We will continue with treating with daily aspirin and will consider changing to anticoagulation when she is passed the risk of having her stroke turn into a hemorrhagic stroke, neurology input will be requested. Check lipid panel and treat per NCEP guidelines, to achieve LDL <70 I discussed with the 2 daughters and there were 2 grandchildren in the room, this diagnosis. It is a very optimistic sign that she is starting to move the left leg. (2) Respiratory failure Impression: The patient was found down and in respiratory distress needing to be intubated a t the scene Plan: Continue with mechanical vent management as below (3) On mechanically assisted ventilation Impression: Plan: We will decrease propofol and measure her respiratory parameters such as neph. If these are strong we will allow her to try CPAP and preparation for extubation She was put on CPAP and became very tachypneic, also not able to follow directions. It was felt that she will tire and CPAP was not continued. She will therefore not be extubated today Remain on the vent, propofol for sedation, soft wrist restraints to prevent removal of equipment (4) Thrombus in heart chamber Impression: Since she has a very dilated left atrium and left atrial appendage, the hazy area in the left atrial appendage appears to be a thrombus however this is by transthoracic echo, we do not have RIP here. She is at high risk of having a clot in the MATT having underlying A-fib (paroxysmal), And not having been on anticoagulation for a long time. Plan: We will continue with treating with daily aspirin and will consider changing to anticoagulation when she is passed the risk of having her stroke turn into a hemorrhagic stroke, neurology input will be requested. (5) Paroxysmal A-fib Impression: Patient was prescribed a DOAC. She took it for 1 month. She did not want to refill that prescription due to its cost. The family did not mention that she was ordered any heart rate slowing prescriptions. In the ER yesterday she was in atrial fib-flutter with a rapid ventricular rate. She converted to sinus rhythm last night on her own and today she is in sinus bradycardia. 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 We will ask for neurology guidance as to when anticoagulants can be safely started. Since she has documented marked bradycardia, rate of 45, starting heart rate control meds will be very difficult. She would usually be candidate for pacemaker implant then start heart rate meds. Because of her poor prognosis with the stroke, history of being noncompliant to medical recommendations and family not wanting her to be transferred for aggressive neurologic care, she will likely not be having a pacemaker inserted, therefore possibly no heart rate meds will be started (6) Hypothyroidism Impression: Patient had known hypothyroidism, and she did not take her thyroid medication, the 2 daughters admitted this. They both tried to convince her to take it and she simply refused. The daughter who lives with her gave examples of how she would wear the coat in a warm house occasionally because of being so cold, a sx of her hypothyroidism. Her TSH of level is extremely high consistent with the fact that she has untreated hypothyroidism. She received 1 dose of IV thyroid replacement Plan: We will continue with thyroid medication per NG She will need a new TSH checked in about 4 to 8 weeks (7) Abnormal EKG Impression: Today's EKG shows deep symmetrical anterior T wave inversions. Therefore troponins were ordered and are mildly elevated at 48 and 40 but they are flat Echo was done today that does show to separate areas of regional wall motion abnormalities, 1 at the basal inferior wall and another at the apex. The EKG could be a sign of the stroke and not an acute ID, based on these troponin values Plan: She likely has coronary disease based on the Echo results. We will check lipid panel and other work-up is similar to the stroke work up (8) Noncompliance with medication regimen Impression: Both daughters gave me many examples today of how the patient was noncompliant with prescribed medications or management: She said that she no longer has a heart problem now that her dental work was completed, for example (teeth extracted and has new dentures), and that she did not need to go to a doctor because she was treating her cough and shortness of breath with Primatene Mist on her own. The patient would only be seen at walk-in clinics or ERs and those were very rare times. She finally agreed to see and establish with a primary care doctor recently, and then canceled that appointment 2 days prior, again told them that she did not need to see a doctor. Plan: Today I discussed with 2 daughters, and 2 grandchildren in the room, that having had untreated hypothyroidism, and untreated A-fib with RVR, have led to some of the symptoms that she had (like feeling cold, and possibly the memory worsening) and not taking prescribed meds likely contributed to the stroke. I discussed with both daughters that she was not making good medical decisions, possibly bec ause of untreated hypothyroidism or prior strokes, and going forward they have to decide if they will be insistent that the mother takes her p.o. meds, or if they will let her make her own decisions and allow her diseases to worsen with a goal only being to keep her comfortable. Advance care planning was done today (see separate entry). CRITICAL CARE TIME SPENT: 70 min
--- NOTE | 2022-06-18 14:34 | ADVANCE CARE PLANNING NOTE ---
Advance Care Planning - Planning Encounter Date: 06/18/22 Time: 12:30 Purpose: To establish family's wishes regarding her medical management going forward. To confirm pt's DNR status. Parties in Attendance: The patient's daughter Sherrill, her DPOA and the other daughter Amber were at bedside. Sherrill's 2 children (the patient's grandchildren), 1 male 1 female, were in the room with this Hospitalist. The patient's SUPERVISOR REMELT Jared w as in and out of the room doing patient care, during this discussion. Decisional Capacity of the Patient: She has no decisional capacity, she is currently on a propofol drip and intubated. Sherrill, her daughter is making medical decisions for her. Sherrill reports that she is the DPOA, we do not have paperwork yet that confirms this. Prior to this hospitalization, the patient was being very forgetful, had trouble driving safely (see below). Before this stroke, I suspect the pt already had poor decisional capacity. - Encounter Subjective/Patient's Story: The patient has not had an established doctor for over a decade. She would only go to walk-in clinics and ERs. She has been diagnosed with hypothyroidism and wants to be on a thyroid medication which she has not taken for years. She was diagnosed with A-fib and was supposed to be on an anticoagulant which she has not taken for months. The patient is a smoker of 2 cigarettes to half a pack a day. Patient was on no prescription medications whatsoever, she only took qese-whn-yniltlb Primatene Mist and other OTC meds for symptoms. The daughter who lives with her, has been keeping a diary about this pt's symptoms and has log entries since 2019 of patient's symptoms and examples of interactions, which daughter wrote in 2 spiral notebooks. Today this daughter pulled out these spiral notebooks and started reading me the entries starting back in 2019. She was reading every single daily entry, which included symptoms like "mother coughing alot", "mother forgetting that she just asked the same question 10 min ago", "driving is poor, she is making right turns from the left rebel", "mother wore her coat indoors today, said she was very cold". I asked the daughter to summarize overall what her symptoms were and not go through every day of the diary entries starting in 2019. The daughter said she "could not remember, that is why she is reading each day's entries out loud". Both daughters gave me many examples today of how the patient was noncompliant with prescribed medications or management: The pt would repeatedly state said that she "no longer has a heart problem now that her dental work was completed", for example. By this she was talking about having bad teeth extracted and has new dentures. The pt said she "did not need to go to a doctor because she was treating her cough and shortness of breath with Primatene Mist on her own". She went through 1 bottle of Primatene Mist in 24 hours. For years, the patient would only be seen at walk-in clinics or ERs and those were very rare times. Sherrill finally put her foot down and forced her mother to seek medical attention in June 2021 and drove her to the ER then. This was when she was diag nosed with A-fib and prescribed an anticoagulant. She took it for 1 month then did not want to refill it because it was "too expensive". The pt finally agreed to see a provider to establish with as a primary care doctor recently, and then canceled that appointment 2 days prior, and again told both daughters that she did not need to see a doctor. I asked the daughter with whom she lives, if she was eating, warm and dry and had good hygiene. Amber said that the patient took a shower only once a month and that Amber did not make her do it more often. Amber did make 3 meals a day which the patient did eat but did not finish 100%. The patient was allowed to drive, by Amber, even though Amber noted, in the diary, examples of very poor driving habits. Amber wrote entries like "possibly poor vision and may need to go see an eye doctor, or is she becoming forgetful". Objective/Medical Story: Patient fell at home, daughter heard the thud. She was not evaluated for about 30 minutes from that time, by the daughter. Then EMS was called. She was intubated at the scene. She presented obtunded and a CT head was done that shows a stroke. She is in the ICU on a ventilator and propofol for sedation. It is appearing that she has left-sided neglect, as her head is turned to the R, her left arm is flaccid, the left leg showed no spontaneous movement until moments ago today. The right leg has had minimal movement in the right arm was moving spontaneously alot. Patient is not following commands, when the propofol drip is decreased today. I discussed with 2 daughters, and 2 grandchildren in the room, that having had untreated hypothyroidism, and untreated A-fib with RVR, have led to some of the symptoms that she had (like feeling cold, and possibly the memory worsening) and not taking prescribed meds likely contributed to the stroke. I discussed with both daughters that she was not making good medical decisions, possibly because of untreated hypothyroidism or possibly had prior strokes, and going forward they have to decide if they will be insistent that the mother takes her p.o. meds, or if they will let her make her own decisions and allow her diseases to worsen with a goal only being to keep her comfortable. Sherrill stated that their mother would not want to have been put on a ventilator. Both daughters asked if there were any signs of improvement since being admitted. I reviewed the current diagnoses and the overall poor prognosis with untreated hypothyroidism, a large stroke and paroxysmal A-fib with RVR alternating with sinus bradycardia. Goals of Care: Both daughters want the patient to be comfortable. Sherrill, who is the DPOA, has mentioned that "she would never have been wanted to be on a ventilator". There is an advanced care directive brought in, has been scanned into [employer]. It indicates to not continue to support her if she is in a vegetative state. There is no POLST form in [employer]. I confirmed now with the DPOA, that the patient is currently a DNR and Sherrill agreed. Plan: Will continue with maximum medical management in ICU Will try to wean the pt off the vent and hopefully extubate her if possible Continue plan of no transfer to a higher level of care facility for now If she survives this hospitalization, no driving will be allowed. Both daughters agreed. Follow the detailed patient wishes that are described in the advanced care directive which has been scanned into [employer] Will complete a POLST form, indicating DNR, going forward. i Will discuss the social dynamics between the family, with MECHANICS SUPERVISOR. Code Status: Do Not Attempt Resuscitation Time spent on advance care plannin min
--- NOTE | 2022-06-18 14:40 | PROVIDER PROGRESS NOTE ---
Hospitalist Cross-cover Note - Cross-Cover Note Cross-Cover Note: As a board-certified Counseling Services Director, credentialed to do and interpret Echocardiograms, I performed a complete bedside Echo on this patient. Date: 06/18/22 Indication: Atrial fibrillation flutter, Acute stroke Image quality: fair Findings: Severely dilated left atrium. Dilated left atrial appendage. There is a probable clot seen filling the left atrial appendage. Normal right atrial size. Intact interatrial septum tested by color Doppler Normal left ventricular size and wall thickness. The apex is mildly hypokinetic, the basal inferior wall is severely hypokinetic, all otherwall motion appears normal, LVEF 50 to 55%. Doppler shows pseudonormalization (grade 2 diastolic dysfunction). Right ventricular size, wall thickness and function appear normal, TAPSE is greater than 2 Mitral annulus is heavily calcified. Mitral leaflets are thickened and have reduced mobility. Color Doppler shows mild mitral regurgitation. Doppler shows no significant mitral stenosis The aortic valve is trileaflet and heavily sclerotic. Doppler exam shows no elevated gradient of aortic stenosis. The tricuspid valve appears structurally normal. There is trace tricuspid regurgitation. Pulmonary artery pressure could not be adequately calculated from this TR jet. Pulmonic valve poorly seen, no Doppler could be performed of ther PV. No pericardial effusion seen. Summary: 1. Dilated left atrium with left atrial appendage clot 2. LVEF 50% with regional wall motion abnormalities seen, grade 2 diastolic dysfunction present 3. Normal RV size and function 4. Mild mitral regurgitation and trace tricuspid regurgitation present. Stefanie Waters MD, [facility]
[2022-06-19] MEDS: SODIUM CHLORIDE FLUSH 0.9% 10 ML SYRINGE IVP SCH ×3 (00:10→16:17)
[2022-06-19] MEDS: SODIUM CHLORIDE 0.9% 1,000 ML IV SCH ×3 (02:50→18:38)
[2022-06-19] MEDS: PROPOFOL 1000 MG/100 ML 1,000 MG/100 ML BOTTLE IV SCH (04:02)
[2022-06-19] MEDS: SODIUM CHLORIDE FLUSH 0.9% 10 ML SYRINGE IVP PRN (05:25)
[2022-06-19 05:40] LABS: CALCIUM, IONIZED 1.13 mmol/L (1.15-1.33); VBG PH 7.356 (7.31-7.41)
[2022-06-19 05:43] LABS: BASOPHILS # (AUTO) 0.1 10^3/uL (0.0-0.1); BASOPHILS % (AUTO) 0.4 %; EOSINOPHILS # (AUTO) 0.1 10^3/uL (0.0-0.7); EOSINOPHILS % (AUTO) 0.4 %; HCT - HEMATOCRIT 34.2 % (37.0-47.0); HGB - HEMOGLOBIN 11.5 g/dL (12.0-16.0); LYMPHOCYTES # (AUTO) 0.9 10^3/uL (1.5-3.5); MEAN CORPUSCULAR HEMOGLOBIN 32.7 pg (27.0-31.0); MEAN CORPUSCULAR HGB CONC 33.6 g/dL (32.0-36.0); MEAN CORPUSCULAR VOLUME 97.2 fL (81.0-99.0); MEAN PLATELET VOLUME 9.5 fL (7.9-10.8); NEUTROPHILS % (AUTO) 85.6 %; PLT - PLATELET COUNT 141 10^3/uL (130-450); RED BLOOD COUNT 3.52 10^6/uL (4.20-5.40); RED CELL DISTRIBUTION WIDTH 13.6 % (12.0-15.0); WHITE BLOOD COUNT 14.1 x10^3/uL (4.8-10.8)
[2022-06-19 05:53] LABS: CALCIUM 8.4 mg/dL (8.5-10.3); CREATININE 0.8 mg/dL (0.4-1.0); PHOSPHORUS 2.2 mg/dL (2.5-4.6)
[2022-06-19] MEDS: PANTOPRAZOLE 40 MG VIAL IVP SCH (06:02)
[2022-06-19 06:34] LABS: ABG HCO3 20.5 mmol/L (22.0-26.0); ABG PCO2 31 mmHg (34-45); ABG PH 7.43 (7.35-7.45); ABG PO2 112 mmHg (80-100); ABG TCO2 21.4 MMOL/L (21.0-29.0)
[2022-06-19 06:35] LABS: ABG BASE EXCESS -2.8 mmol/L (-2.0-3.0); ABG MODE OF VENTILATION ASSIST/CONTROL; ABG OXYGEN SATURATION 98 % (94-98); ABG RESPIRATORY RATE 16 b/min; ALLEN TEST POSITIVE
[2022-06-19] MEDS ORDERED: AMIODARONE 360 MG/200 ML 200 ML IV ONE (06:36)
[2022-06-19] MEDS ORDERED: AMIODARONE 150 MG/100 ML 100 ML IV ONE (06:36)
[2022-06-19] MEDS ORDERED: POTASSIUM PHOSPHATE 15 MMOL in SODIUM CHLORIDE 0.9% 250 ML IV ONE (08:00)
[2022-06-19] MEDS: ATORVASTATIN 40 MG TABLET NG SCH (08:33)
[2022-06-19] MEDS: ASPIRIN 325 MG TABLET PO SCH (08:33)
[2022-06-19] MEDS: FAMOTIDINE 20 MG/2 ML VIAL IVP SCH ×2 (08:52→21:12)
[2022-06-19] MEDS ORDERED: diltiaZEM INJ 5 MG/ML VIAL IVP ONE (10:27)
[2022-06-19] MEDS: HYDROCORTISONE SUCCINATE 100 MG/2 ML VIAL IVP SCH (10:32)
[2022-06-19] MEDS: NICOTINE 14 MG PATCH TOP SCH (11:35)
--- NOTE | 2022-06-19 11:45 | PHARMACY PROGRESS NOTE ---
- Best Possible Medication History Admit Date and Time: 06/17/22 0536 Processed by: Pharmacy Patient Interview: Pt unable to participate Secondary Source(s): Other family member, Insurance records Patient has not taken any of her medications in several months. Many of her medications have not been filled since early last year. Previously prescribed medications include: ASA 81 mg, diltiazem CD 120 mg, levothyroxine 100 mcg, rivaroxaban 20 mg, and rosuvastatin 10 mg. As the person ultimately responsible for medication therapy, providers are able to order a medication from an existing home medication list in [facility] via the "Reconcile Routine" prior to Confirmation of that medication by customer support technician. Such practice is discouraged except when the physician, in their clinical judgment, deems that a medical need exists for a medication without regard to previous use.
[2022-06-19] MEDS ORDERED: AMIODARONE 360 MG/200 ML 200 ML IV SCH (13:00)
--- NOTE | 2022-06-19 13:24 | PROVIDER PROGRESS NOTE ---
Subjective - Subjective Pt reports feeling: Improved (Following all directions, able to look to the left briefly, able to move the left leg minimally, left arm still flaccid) Objective - Vital Signs/Intake & Output Vital Signs: Vital Signs Temp Pulse Resp BP BP Pulse Ox O2 Flow Rate 06/19/22 12:00 37.6 C 125 H 23 109/81 H 95 2 06/19/22 11:00 37.7 C 137 H 18 102/84 H 95 2 06/19/22 10:36 2 06/19/22 10:33 116/91 H 06/19/22 10:00 37.8 C 138 H 16 116/91 H 99 06/19/22 09:00 37.7 C 151 H 21 124/77 100 Intake & Output: Intake & Output 06/16/22 06/17/22 06/18/22 06/19/22 23:59 23:59 23:59 23:59 Intake Total 4.375 3304.923 1332.931 Output Total 1200 986 Balance 4.375 2104.923 346.931 - Objective General Appearance: positive: No acute distress Eyes Bilateral: positive: Normal inspection ENT: positive: ENT inspection nml, No signs of dehydration Neck: positive: Nml inspection Respiratory: positive: No respiratory distress, Other (Distant breath sounds, increased AP diameter, no Rales or wheezes) Cardiovascular: positive: Tachycardia Abdomen: positive: Non-tender, No distention Skin: positive: Warm, Dry Extremities: positive: Non-tender, No pedal edema Neurologic/Psychiatric: positive: Other (Following all directions, is trying to communicate by using mostly her right arm and R hand (before extubation), still has L-sided neglect and a flaccid L arm.) - Lab Results Fish Bones: 06/19/22 05:25 06/19/22 05:25 Other Labs: Lab Results x24hrs 06/19/22 06/19/22 06/19/22 Range/Units 05:50 05:25 05:25 WBC (4.8-10.8) x10^3/uL RBC (4.20-5.40) 10^6/uL Hgb (12.0-16.0) g/dL Hct (37.0-47.0) % MCV (81.0-99.0) fL MCH (27.0-31.0) pg MCHC (32.0-36.0) g/dL RDW (12.0-15.0) % Plt Count (130-450) 10^3/uL MPV (7.9-10.8) fL Neut # (Auto) (1.5-6.6) 10^3/uL Lymph # (Auto) (1.5-3.5) 10^3/uL Stephens # (Auto) (0.0-1.0) 10^3/uL Eos # (Auto) (0.0-0.7) 10^3/uL Baso # (Auto) (0.0-0.1) 10^3/uL Absolute Nucleated RBC x10^3/uL Nucleated RBC % /100WBC Bld Gas Analysis Time 0556 Sample Site LEFT RADIAL ABG pH 7.43 (7.35-7.45) ABG pCO2 31 L (34-45) mmHg ABG pO2 112 H (80-100) mmHg ABG HCO3 20.5 L (22.0-26.0) mmol/L ABG Total CO2 21.4 (21.0-29.0) MMOL/L ABG O2 Saturation 98 (94-98) % ABG Base Excess -2.8 L (-2.0-3.0) mmol/L Ruben Test POSITIVE VBG pH 7.356 (7.31-7.41) Ionized Calcium 1.13 L (1.15-1.33) mmol/L Respiration Rate 16 b/min O2 Delivery Device VENTILATOR Vent Mode ASSIST/CONTROL FiO2 40.00 Tidal Volume 400 mL PEEP 5 cmH2O Sodium 139 (135-145) mmol/L Potassium 4.0 (3.5-5.0) mmol/L Chloride 112 H (101-111) mmol/L Carbon Dioxide 20 L (21-32) mmol/L Anion Gap 7.0 (6-13) BUN 18 (6-20) mg/dL Creatinine 0.8 (0.4-1.0) mg/dL Estimated GFR (MDRD) 69 L (>89) Glucose 121 H (70-100) mg/dL Calcium 8.4 L (8.5-10.3) mg/dL Phosphorus 2.2 L (2.5-4.6) mg/dL Magnesium 2.0 (1.7-2.8) mg/dL 06/19/22 Range/Units 05:25 WBC 14.1 H (4.8-10.8) x10^3/uL RBC 3.52 L (4.20-5.40) 10^6/uL Hgb 11.5 L (12.0-16.0) g/dL Hct 34.2 L (37.0-47.0) % MCV 97.2 (81.0-99.0) fL MCH 32.7 H (27.0-31.0) pg MCHC 33.6 (32.0-36.0) g/dL RDW 13.6 (12.0-15.0) % Plt Count 141 (130-450) 10^3/uL MPV 9.5 (7.9-10.8) fL Neut # (Auto) 12.0 H (1.5-6.6) 10^3/uL Lymph # (Auto) 0.9 L (1.5-3.5) 10^3/uL Stephens # (Auto) 1.0 (0.0-1.0) 10^3/uL Eos # (Auto) 0.1 (0.0-0.7) 10^3/uL Baso # (Auto) 0.1 (0.0-0.1) 10^3/uL Absolute Nucleated RBC 0.00 x10^3/uL Nucleated RBC % 0.0 /100WBC Bld Gas Analysis Time Sample Site ABG pH (7.35-7.45) ABG pCO2 (34-45) mmHg ABG pO2 (80-100) mmHg ABG HCO3 (22.0-26.0) mmol/L ABG Total CO2 (21.0-29.0) MMOL/L ABG O2 Saturation (94-98) % ABG Base Excess (-2.0-3.0) mmol/L Ruben Test VBG pH (7.31-7.41) Ionized Calcium (1.15-1.33) mmol/L Respiration Rate b/min O2 Delivery Device Vent Mode FiO2 Tidal Volume mL PEEP cmH2O Sodium (135-145) mmol/L Potassium (3.5-5.0) mmol/L Chloride (101-111) mmol/L Carbon Dioxide (21-32) mmol/L Anion Gap (6-13) BUN (6-20) mg/dL Creatinine (0.4-1.0) mg/dL Estimated GFR (MDRD) (>89) Glucose (70-100) mg/dL Calcium (8.5-10.3) mg/dL Phosphorus (2.5-4.6) mg/dL Magnesium (1.7-2.8) mg/dL Sepsis Event Note (H) - Evaluation Current Stage of Sepsis: Ruled out Assessment/Plan - Problem List (1) Cerebrovascular accident (CVA) Impression: The work-up on presentation in ED showed a stroke in evolution, as per Telestroke eval in ED. The family did not want to have her transferred to a neurologic ICU, which had been advised by Telestroke, and she was not a TNK candidate. On exam, she has left-sided neglect. She started to move the left leg yesterday06/18 afternoon, the left arm is flaccid. She is mostly not moving her neck but is following all commands. She was extubated this morning Her lipid panel shows LDL of Plan: Remain in our ICU today, in case re-intubation and the ventilator is needed. [place] gr will transfer out of ICU tomorrow. We will continue with treating with daily aspirin and will consider changing to anticoagulation when she is passed the time when her stroke could transform into a hemorrhagic stroke, neurology input will be requested. Will get swallow screen by RN and Speech Therapy eval too, possibly start a diet soon I updated the 2 daughters and there were 2 grandchildren in the room, this diagnosis. It is a very good sign that she is starting to move the left leg and can follow commands. (2) Fever Patient had a fever spike yesterday afternoon to 38 2 and today has a low-grade temp 37 8. After extubation she is coughing up brown sputum which is thick Given the stroke and recent intubation, she is at risk for an aspiration pneumonia Plan: We will send off a sputum for culture We will obtain blood cultures We will obtain a chest x-ray We will start empiric antibiotics using iv Flagyl and iv Levaquin, due to her PCN allergy. (3) A-fib with RVR Impression: Patient probably has a Hx of Paroxysmal Afib, since Afib has come and gone since admission. She was prescribed a DOAC. She took it for 1 month, then she did not want to refill it due to its cost. It appears she was not on any heart rate slowing prescriptions. Atrial fib-flutter has been with a rapid ventricular rate. She converted to sinus rhythm on her own and was in sinus bradycardia at rate 48 yesterday 06/18, on no HR-slowing meds. Overnight last night, she went back into atrial fib with RVR and Amio drip was started by the Telemedicine. This morning I have seen atrial flutter at a rate of 190. 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 Plan: We will hold off on starting anticoagulation, given the risk of transforming the acute stroke into a hemorrhagic stroke in the early stroke phase. We will ask for neurology guidance as to when anticoagulants can be safely started. 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 Because of her history of being noncompliant to medical recommendations and family not wanting her transferred for aggressive neurologic care, she may not be a candidate for pacemaker insertion. Will explain this conundrum to the family. (4) Thrombus in heart chamber Impression: Echo was done 06/18 and showed a very dilated left atrium and very dilated left atrial appendage, with hazy area in the left atrial appendage that appeared to be a thrombus however that was by transthoracic echo, we do not have RIP here. She is at high risk of having a clot in the MATT, given the Hx A-fib and not having been on anticoagulation for a long time. Plan: We will continue with treating with daily aspirin and will probably change to anticoagulation when she has passed the time her stroke could transform into a hemorrhagic stroke, neurology input will be requested. (5) Hypothyroidism Impression: Patient had known hypothyroidism, and she did not take her thyroid medication, the 2 daughters admitted this. They both tried to convince her to take it and she simply refused. The daughter who lives with her gave examples of how she would wear a coat in a warm house occasionally because of being so cold, likely a sx of her hypothyroidism. Her TSH of level is extremely high consistent with untreated hypothyroidism. She received 1 dose of IV thyroid replacement Plan: We will continue with thyroid medication per NG or po She will need a new TSH checked in about 4 to 8 weeks (6) Abnormal EKG Impression: EKG from 06/18 showed sinus mike at 48, and deep symmetrical anterior T wave inversions. Therefore troponins were ordered and are mildly elevated at 48 and 40 but they are flat. The EKG could be a sign of the stroke and not an acute MT, based on these troponin values Echo was done 06/18 that does show to separate areas of regional wall motion abnormalities, one at the basal inferior wall and another at the apex. Plan: She likely has coronary disease based on the Echo results and given her Hx of not taking prescribed meds. (7) Tobacco use Plan: We will order nicotine patch (8) Noncompliance with medication regimen Impression: Both daughters gave me many examples of how the patient was noncompliant with prescribed medications and management: The pt verbalized that she no longer has a heart problem now that her dental work was completed, teeth extracted and got new dentures, and that she did not need to go to a doctor because she was treating her cough and shortness of breath with Primatene Mist on her own. The patient would only be seen at walk-in clinics or ERs and those were very rare times. She finally agreed to see and establish with a primary care doctor recently, and then canceled that appointment 2 days prior, again told the daughters that she did not need to see a doctor. Plan: Advance care planning was done (see separate entry). SW consult requested (9) Respiratory failure Impression: The patient was found down and in respiratory distress needing to be intubated at the scene Resolved, she was extubated this a.m. (10) On mechanically assisted ventilation Impression: Resolved, she was extubated this a.m.
--- NOTE | 2022-06-19 14:14 | XRAY Report ---
PROCEDURE: Chest 1 View X-Ray INDICATIONS: cough, fever, stroke and has risk aspiration TECHNIQUE: One view of the chest was acquired. COMPARISON: None. FINDINGS: Surgical changes and devices: Right IJ central line tip projects over the cavoatrial junction. Lungs and pleura: Hazy right lower lung zone airspace opacity. Mediastinum: Mediastinal contours appear normal. Heart size is normal. Bones and chest wall: No suspicious bony lesions. Overlying soft tissues appear unremarkable. IMPRESSION: Hazy right lower lung zone air space opacity could represent atelectasis, infection or aspiration. Reviewed by: Haider Spaulding on 06/19/2022 2:13 PM PST Approved by: Haider Spaulding on 06/19/2022 2:13 PM PST Station ID: [id number]
[2022-06-19] MEDS: LEVOTHYROXINE 100 MCG TABLET NG SCH (14:41)
[2022-06-19] MEDS: metroNIDAZOLE 500 MG/100 ML 500 MG/100 ML BAG IV SCH ×2 (14:49→23:12)
[2022-06-19] MEDS: levoFLOXacin 750 MG/150 ML 750 MG/150 ML BAG IV SCH (16:17)
[2022-06-19] MEDS: NEUTRA-PHOS 250 MG TABLET PO SCH ×2 (18:37→21:12)
[2022-06-19] MEDS ORDERED: PANTOPRAZOLE 40 MG VIAL IVP SCH (21:00)
[2022-06-19] MEDS ORDERED: DIGOXIN 500 MCG/2 ML AMP IVP ONE (21:35)
[2022-06-19] MEDS ORDERED: DIGOXIN 500 MCG/2 ML AMP IVP STA (21:36)
--- NOTE | 2022-06-19 21:37 | PROVIDER PROGRESS NOTE ---
Hospitalist Cross-cover Note - Cross-Cover Note Cross-Cover Note: Callede by SAL Chavez, stating patient is in A fib with RVR have increased amiodarone from 0.5 to 1 and also have given a dose of digoxin. Discussed with SAL
[2022-06-20] MEDS: SODIUM CHLORIDE FLUSH 0.9% 10 ML SYRINGE IVP SCH ×3 (00:43→20:13)
[2022-06-20] MEDS: AMIODARONE 360 MG/200 ML 200 ML IV SCH ×2 (00:44→06:46)
[2022-06-20] MEDS: PROPOFOL 1000 MG/100 ML 1,000 MG/100 ML BOTTLE IV SCH (03:12)
[2022-06-20] MEDS: SODIUM CHLORIDE 0.9% 1,000 ML IV SCH ×2 (03:52→20:19)
[2022-06-20] MEDS: ACETAMINOPHEN 325 MG TABLET PO PRN (04:43)
[2022-06-20 05:44] LABS: CALCIUM, IONIZED 1.11 mmol/L (1.15-1.33); VBG PH 7.399 (7.31-7.41)
[2022-06-20 05:56] LABS: MAGNESIUM 1.6 mg/dL (1.7-2.8); PHOSPHORUS 1.7 mg/dL (2.5-4.6)
[2022-06-20] MEDS ORDERED: MAGNESIUM SULFATE 2 GRAM 2 GM/50 ML BAG IV ONE (06:11)
[2022-06-20] MEDS: metroNIDAZOLE 500 MG/100 ML 500 MG/100 ML BAG IV SCH ×3 (06:31→23:26)
[2022-06-20] MEDS: LEVOTHYROXINE 100 MCG TABLET NG SCH (06:46)
[2022-06-20] MEDS ORDERED: POTASSIUM PHOSPHATE 15 MMOL in SODIUM CHLORIDE 0.9% 250 ML IV ONE ×2 (08:00→23:30)
[2022-06-20] MEDS ORDERED: CARBOXYMETHYLCELLULOSE OPHTH DROPS EACHEYE PRN (08:02)
[2022-06-20] MEDS: ASPIRIN 325 MG TABLET PO SCH (08:04)
[2022-06-20] MEDS: ATORVASTATIN 40 MG TABLET NG SCH (08:04)
[2022-06-20] MEDS: FAMOTIDINE 20 MG/2 ML VIAL IVP SCH ×2 (08:50→21:25)
[2022-06-20] MEDS: NICOTINE 14 MG PATCH TOP SCH (09:22)
--- NOTE | 2022-06-20 11:39 | CT Report ---
PROCEDURE: CT brain without contrast INDICATIONS: hemiplegia, neg CT TECHNIQUE: Noncontrast 4.5 mm thick angled axial sections acquired from the foramen magnum to the vertex. For r adiation dose reduction, the following was used: automated exposure control, adjustment of mA and/or kV according to patient size. COMPARISON: None. FINDINGS: Image quality: Excellent. CSF spaces: Basal cisterns are patent. No extra-axial fluid collections. Ventricles are normal in size and shape. Brain: There is now blurring of the barron-white junction and the sulcal effacement noted in the right frontal posterior operculum, supramarginal gyrus, and posterior right insula. Additional similar find ings noted in the right superior frontal gyrus, including the precentral gyrus. No evidence of hemorr hagic conversion. No significant gross mass effect or midline shift. Underlying atrophy and multifoca l white matter chronic ischemic change appreciated. Skull and face: Calvarium and visualized facial bones are intact, without suspicious lesions. Sinuses: Fluid and secretions noted in the sphenoid sinus in particular. IMPRESSION: 1. Subacute infarcts in the right frontal, parietal and insular cortex 2. Fluid in sphenoid sinus probably related to recent intubation Reviewed by: Tha Handy MD on 06/20/2022 10:38 AM [facility] Approved by: Tha Handy MD on 06/20/2022 10:38 AM [facility] Station ID: [id number]
[2022-06-20] MEDS ORDERED: diltiaZEM CD 120 MG CAPSULE PO SCH (13:00)
[2022-06-20] MEDS ORDERED: AMIODARONE 200 MG TABLET PO SCH (14:00)
[2022-06-20] MEDS: AMIODARONE 200 MG TABLET PO SCH (14:32)
[2022-06-20] MEDS: levoFLOXacin 750 MG/150 ML 750 MG/150 ML BAG IV SCH (15:00)
[2022-06-20] MEDS ORDERED: ONDANSETRON 4 MG/2 ML VIAL ONE (15:33)
[2022-06-20] MEDS ORDERED: ONDANSETRON 4 MG/2 ML VIAL IVP PRN (15:36)
--- NOTE | 2022-06-20 15:39 | PROVIDER PROGRESS NOTE ---
Subjective - Prog Note Date Prog Note Date: 06/20/22 Prog Note Time: 15:38 - Subjective Pt reports feeling: Improved Subjective: I reviewed the chart. She came in on 06/18. Intubated in the field. She has a history of paroxysmal atrial fibrillation. When she came in by ambulance and was intubated, she was in A-fib. She converted to sinus rhythm on her own 06/19. She was supposed to be on a Xarelto but stopped it after a month because it cost too much money. On admission she had a dense left hemiplegia and was unresponsive. Between the and today the left side of her body is moving more and more, especially in the left leg. A bedside echocardiogram was done by the hospitalist on the . She had a severely dilated left atrium with probable clot seen filling the left atrial appendage. The basal inferior wall is sev erely hypokinetic but all other wall motion appeared normal. EF was 50 to 55%. Grade 2 diastolic dysfunction. She was extubated 06/19. She is more alert. More verbal. She has been having problems swallowing and was coughing up ramos- brown phlegm. Fever did occur 06/19 and she has been on empiric antibiotics for aspiration. She went back into atrial fibrillation around 6 AM this morning with a rate of 115 and as high as 170. The previous hospitalist on service spoke to the patient's DPOA, her daughter. Patient is DO NOT RESUSCITATE with selective treatment. With the recurrence of the atrial fibrillation at 6 AM, the telemed hospitalist started her on amiodarone. This morning she is slightly anxious. Can't believe this happened. Keeps on asking "am I going to be okay". Is perseverating, repetitive but knows that she is in the hospital and that she has had a stroke. She denies any significant pain. She is very polite, reaches out with her right hand to shake my hand when I introduced myself. Does so again with my PA student from [facility]. Excuses her self and apologizes when sometimes her words do not come out so clearly and we all reassure her that she is doing great. Current Medications - Current Medications Current Medications: Active Medications Acetaminophen (Acetaminophen 325 Mg Tablet) 650 mg PO Q4HR PRN PRN Reason: Pain 1 to 4, or Fever Last Admin: 06/20/22 04:43 Dose: 650 mg Albuterol/Ipratropium (Ipratropium/Albuterol 3 Ml Neb) 3 ml INH Q4HR PRN PRN Reason: Wheezing Amiodarone HCl (Amiodarone 200 Mg Tablet) 400 mg PO 1400 [facility] Stop: 06/30/22 14:01 Last Admin: 06/20/22 14:32 Dose: 400 mg Aspirin (Aspirin 325 Mg Tablet) 325 mg PO DAILY [facility] Last Admin: 06/20/22 08:04 Dose: 325 mg Atorvastatin Calcium (Atorvastatin 40 Mg Tablet) 40 mg NG DAILY [facility] Last Admin: 06/20/22 08:04 Dose: 40 mg Carboxymethylcellulose (Carboxymethylcellulose Ophth Drops) 1 drops EACHEYE PRN PRN PRN Reason: Dry Eye Last Admin: 06/20/22 08:17 Dose: 1 drops Diltiazem HCl (Diltiazem Cd 120 Mg Capsule) 120 mg PO DAILY [facility] Last Admin: 06/20/22 12:53 Dose: 120 mg Famotidine (Famotidine 20 Mg/2 Ml Vial) 20 mg IVP BID [facility] Last Admin: 06/20/22 08:50 Dose: 20 mg Propofol (Diprivan) 1,000 mg in 100 mls @ 3.69 mls/hr IV .Q27H7M [facility]; Protocol Last Admin: 06/20/22 03:12 Dose: Not Given Levofloxacin (Levaquin 750 Mg/150 Ml) 750 mg in 150 mls @ 100 mls/hr IV Q24H [facility] Last Infusion: 06/19/22 19:56 Dose: Infused Metronidazole (Flagyl 500 Mg/100 Ml) 500 mg in 100 mls @ 100 mls/hr IV Q8H [facility] Last Admin: 06/20/22 14:57 Dose: 100 mls/hr Sodium Chloride (Normal Saline 0.9%) 1,000 mls @ 85 mls/hr IV .[id number] [facility] Sodium Phosphate 15 mmol/ (Sodium Chloride) 255 mls @ 63.75 mls/hr IV ONCE ONE; Protocol Stop: 06/20/22 19:39 Levothyroxine Sodium (Levothyroxine 100 Mcg Tablet) 100 mcg NG QDAC [facility] Last Admin: 06/20/22 06:46 Dose: 100 mcg Nicotine (Nicotine 14 Mg Patch) 1 patch TOP DAILY [facility] Last Admin: 06/20/22 09:22 Dose: 1 patch Ondansetron HCl (Ondansetron 4 Mg/2 Ml Vial) 4 mg IVP Q4HR PRN PRN Reason: Nausea / Vomiting Last Admin: 06/20/22 15:30 Dose: 4 mg Sodium Chloride (Sodium Chloride Flush 0.9% 10 Ml Syringe) 10 ml IVP 0100,0900,1700 [facility] Last Admin: 06/20/22 08:50 Dose: 10 ml Sodium Chloride (Sodium Chloride Flush 0.9% 10 Ml Syringe) 10 ml IVP PRN PRN PRN Reason: NEEDED PER PROVIDER ORDERS Last Admin: 06/18/22 06:49 Dose: 10 ml Sodium Chloride (Sodium Chloride Flush 0.9% 10 Ml Syringe) 20 ml IVP PRN PRN PRN Reason: After Blood Draw Last Admin: 06/19/22 05:25 Dose: 20 ml No Known Home Medications 06/19/22 Objective - Vital Signs/Intake & Output Reviewed Vital Signs: Yes Vital Signs: Vital Signs Temp Pulse Resp BP BP Pulse Ox 06/20/22 15:00 37.5 C 112 H 20 121/84 H 93 06/20/22 14:00 37.7 C 105 H 24 147/94 H 91 L 06/20/22 13:00 37.6 C 91 24 153/86 H 91 L 06/20/22 12:04 95 33 H 140/101 H 97 06/20/22 11:55 37.7 C 112 H 30 H 159/90 H 95 Intake & Output: Intake & Output 06/17/22 06/18/22 06/19/22 06/20/22 23:59 23:59 23:59 23:59 Intake Total 4.375 3304.923 4223.409 2947.498 Output Total 1200 1946 1690 Balance 4.375 2104.923 2277.409 1257.498 - Objective General Appearance: positive: No acute distress, Alert, Other (Speech is slurred, slow, but intact and lucid seen in structure.) Eyes Bilateral: positive: PERRL, EOMI ENT: positive: No signs of dehydration Neck: positive: No JVD. negative: Stiff neck Respiratory: positive: No respiratory distress, Rhonchi, Other (Occasional cough that is weak, cannot bring up secretions. When she does bring them up they are ramos or brown according to nursing). negative: Wheezes, Rales Cardiovascular: positive: Irregularly irregular, Systolic murmur. negative: Gallop/S4 Abdomen: positive: Non-tender, No organomegaly, Nml bowel sounds, No distention Skin: positive: Warm, Dry Extremities: positive: Full ROM, No pedal edema Neurologic/Psychiatric: positive: Oriented x3 (except for time), Disoriented to time, Facial droop, Slurred/abnml speech, Other (speech says swallowing in impacted). negative: CN's nml (2-12), Motor nml (Left hemiplegia. Can't move L arm but can flex and extend at L foot and bend leg at knee, can't lift. Can use R arm and leg normally.) - Lab Results Fish Bones: 06/19/22 05:25 06/19/22 05:25 Other Labs: Lab Results x24hrs 06/20/22 06/20/22 06/20/22 Range/Units 14:41 05:30 05:30 VBG pH 7.399 (7.31-7.41) Ionized Calcium 1.11 L (1.15-1.33) mmol/L Phosphorus 1.7 L 1.7 L (2.5-4.6) mg/dL Magnesium 1.6 L (1.7-2.8) mg/dL 06/19/22 Range/Units 15:50 VBG pH (7.31-7.41) Ionized Calcium (1.15-1.33) mmol/L Phosphorus 2.0 L (2.5-4.6) mg/dL Magnesium (1.7-2.8) mg/dL Sepsis Event Note (H) - Evaluation Current Stage of Sepsis: Ruled out Assessment/Plan - Problem List (1) Cerebrovascular accident (CVA) Impression: The work-up on presentation in ED showed a stroke in evolution, as per Telestroke eval in ED. The family did not want to have her transferred to a neurologic ICU, which had been advised by Telestroke, and she was not a TNK candidate Because she presented wait longer than the 4 and half hours required for TNK.. On June 18 she had a dense left hemiplegia. Admitting in the broth mixer hours. By the afternoon of she was able to move her left leg a little bit. By the , she was able to follow commands. She was extubated. Between the and now continues to have slight improvement. Left leg is now able to bend at the knee, but cannot be lifted. Speech is slurred but intact. Lucid sentence structure. Swallowing has definitely been impacted. Seen by speech therapy today and we discussed this patient with regards to Slurred speech, slow tongue movement, not protecting her airway completely, causing risk of aspir ation, and most likely she has already aspirated. Stroke appears to be embolic due to unanticoagulated atrial fibrillation. Clot was seen in the left atria with June 18 echocardiogram. Today's echocardiogram done this morning does not show the clot. I repeated her CT today and she has subacute infarcts in the right frontal, parietal, and insular cortex. By my interpretation this is all compatible with multiple emboli from the patient is not anticoagulated in the face of atrial fibrillation. There is no evidence of hemorrhagic conversion. No significant gross mass effect or midline shift. Swallow evaluation was done today as well, and she is at risk for aspiration after discussing this at length with speech therapy. Plan: Yesterday she remained in the ICU in case she needed to be reintubated. Today I am keeping her in the ICU because she goes in and out of atrial fibrillation and has been on an amiodarone drip. We will continue with treating with daily aspirin and will consider changing to anticoagulation when she is passed the time when her stroke could transform into a hemorrhagic stroke. According to up-to-date, "once the stroke evaluation is complete, antithrombotic therapy may be modified according to the ischemic stroke mechanism. For patient's with atrial fibrillation, long-term anticoagulation is started, or resumed, once the risk of hemorrhagic transformation is diminished. This is usually within the first days to 2 weeks after stroke onset, as guided mainly by the size of the ischemic infarct. Their evaluation and review states that they prefer to wait 48 hours to start a DOAC in these patients as DOACs have more rapid anticoagulant effect. Withholding anticoagulation for 2 weeks is generally recommended for those with large isc hemic strokes, symptomatic hemorrhagic transformation or poorly controlled hypertension." I have tried to call radiology to give me an assessment of the size of these strokes. I do not know what the term "large" refers to. Half a centimeter? 1 cm? 2 cm?. Neither does the literature. When I look at the general of pharmacotherapy or the general neurology, they also refer to "large" strokes but do not tell me the size cutoff. Hence I will hold off on giving her a DOAC today until I find out. Right now radiology is not answering their phone and I cannot leave a message. For rehabilitation, she will be seen by physical therapy once she is off the amiodarone drip. I will also start her on moderate thickened liquids, with a pured diet. Physical therapy will then guide us about what this patient's future plans are. She states that she lives in her own home and was independent. She will need intensive rehab to regain what she is lost, to then live at home again. (2) Fever Fever spike on June 18 to 38 degrees. After that, temp was 37.8 and 37.9. After extubation, she is coughing up brown sputum which is thick brown and ramos. Given the stroke and recent intubation, she is at risk for an aspiration pneumonia Because of penicillin allergy she is on Levaquin and Flagyl. Today is day #2. Chest x-ray on June 19 confirms a hazy right lower lung zone airspace opacity which is anatomically the exact right place aspiration would occur. Blood cultures have no growth. Preliminary respiratory culture has many gram- positive cocci in clusters, gram-positive cocci in pairs and chains, gram- positive bacilli, gram-negative bacilli, many white cells, few epithelial cells. Plan: Continue the current antibiotics. I have adjusted her fluid intake per speech therapy with thickened liquids. Adjust antibiotics on the results of any blood cultures or sputum cultures that come back. (3) A-fib with RVR Impression: Patient has a Hx of Paroxysmal Afib, since Afib has come and gone since admiss [facility]. She was prescribed a DOAC. She took it for 1 month, then she did not want to refill it due to its cost. It appears she was not on any heart rate slowing prescriptions. Atrial fib-flutter has been with a rapid ventricular rate. She converted to sinus rhythm on her own and was in sinus bradycardia at rate 48 06/18, on no HR- slowing meds. At 6 am 06/19, she went back into atrial fib with RVR and Amio drip was started by the Telemedicine. 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 Plan: We will hold off on starting anticoagulation, given the risk of transforming the acute stroke into a hemorrhagic stroke in the early stroke phase. 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 Because of her h istory of being noncompliant to medical recommendations and family not wanting her transferred for aggressive neurologic care, she may not be a candidate for pacemaker insertion. I will add Cardizem CD 180 mg a day to keep her heart rate under control with the amiodarone. Now that she is fully amiodarone loaded, we will switch to amiodarone p.o. and stop IV drip (4) Thrombus in heart chamber Impression: Bedside Echo was done 06/18 by hospitalist and showed a very dilated left atrium and very dilated left atrial appendage, with hazy area in the left atrial appendage that appeared to be a thrombus however that was by transthoracic echo, we do not have RIP here. She is at high risk of having a clot in the MATT, given the Hx A-fib and not having been on anticoagulation for a long time. Repeat echocardiogram was done by the geophysical data technician today. Final report not ready. She has mild hypertrophy with the [id number] variation on her ejection fraction but is calculated about 54%. Severe increase in left atrial volume index at 52 mils per meter squared. Moderate right atrial enlargement as well. No significant aortic valvular heart disease. There is mild to moderate secondary mitral regurg. RVSP at rest is 39 mmHg. No mass or thrombus identified. Plan: We will continue with treating with daily aspirin and I will not start a DOAC until I am able to quantify with radiology what is "a large" stroke that would be a contraindication for 2 weeks. (5) Hypothyroidism Impression: Patient had known hypothyroidism, and she did not take her thyroid medication, the 2 daughters admitted this. They both tried to convince her to take it and she simply refused. The daughter who lives with her gave examples of how she would wear a coat in a warm house occasionally because of being so cold, likely a sx of her hypothyroidism. Her TSH of level is extremely high consistent with untreated hypothyroidism. She received 1 dose of IV thyroid replacement. Currently on Synthroid 100 mcg a day that was started on June 19. Plan: She will need a new TSH checked in about 4 to 8 weeks (6) Abnormal EKG Impression: EKG from 06/18 showed sinus ciara at 48, and deep symmetrical anterior T wave inversions. Therefore troponins were ordered and are mildly elevated at 48 and 40 but they are flat. The EKG could be a sign of the stroke and not an acute NC, based on these troponin values Echo was done 06/18 that does show to separate areas of regional wall motion abnormalities, one at the basal inferior wall and another at the apex. Plan: She likely has coronary disease based on the Echo results and given her Hx of not taking prescribed meds. (7) Tobacco use Plan: On a nicotine patch. She says that she will never smoke again. (8) Noncompliance with medication regimen Impression: Both daughters gave me many examples of how the patient was noncompliant with prescribed medications and management: The pt verbalized that she no longer has a heart problem now that her dental work was completed, teeth extracted and got new dentures, and that she did not need to go to a doctor because she was treating her cough and shortness of breath with Primatene Mist on her own. The patient would only be seen at walk-in clinics or ERs and those were very rare times. She finally agreed to see and establish with a primary care doctor recently, and then canceled that appointment 2 days prior, again told the daughters that she did not need to see a doctor. Plan: Advance care planning was done (see separate entry). SW consult requested
[2022-06-20] MEDS ORDERED: SODIUM PHOSPHATE 15 MMOL in SODIUM CHLORIDE 0.9% 250 ML IV ONE (15:40)
[2022-06-20] MEDS: SODIUM CHLORIDE FLUSH 0.9% 10 ML SYRINGE IVP PRN ×2 (22:25)
[2022-06-20 22:59] LABS: MAGNESIUM 2.2 mg/dL (1.7-2.8); PHOSPHORUS 2.4 mg/dL (2.5-4.6)
[2022-06-21] MEDS: SODIUM CHLORIDE FLUSH 0.9% 10 ML SYRINGE IVP SCH ×4 (00:25→20:05)
[2022-06-21] MEDS: SODIUM CHLORIDE 0.9% 1,000 ML IV SCH ×3 (00:25→22:48)
[2022-06-21 05:42] LABS: CALCIUM, IONIZED 1.11 mmol/L (1.15-1.33); VBG PH 7.387 (7.31-7.41)
[2022-06-21 05:56] LABS: PHOSPHORUS 1.9 mg/dL (2.5-4.6)
[2022-06-21] MEDS: PROPOFOL 1000 MG/100 ML 1,000 MG/100 ML BOTTLE IV SCH (06:03)
[2022-06-21] MEDS: metroNIDAZOLE 500 MG/100 ML 500 MG/100 ML BAG IV SCH ×3 (06:23→22:48)
[2022-06-21] MEDS: LEVOTHYROXINE 100 MCG TABLET NG SCH (06:23)
[2022-06-21 07:57] LABS: BASOPHILS % (AUTO) 0.2 %; EOSINOPHILS # (AUTO) 0.1 10^3/uL (0.0-0.7); EOSINOPHILS % (AUTO) 0.5 %; HGB - HEMOGLOBIN 11.2 g/dL (12.0-16.0); LYMPHOCYTES # (AUTO) 0.7 10^3/uL (1.5-3.5); LYMPHOCYTES % (AUTO) 5.9 %; MEAN CORPUSCULAR HEMOGLOBIN 32.3 pg (27.0-31.0); MEAN CORPUSCULAR HGB CONC 33.9 g/dL (32.0-36.0); MEAN CORPUSCULAR VOLUME 95.1 fL (81.0-99.0); MEAN PLATELET VOLUME 10.3 fL (7.9-10.8); MONOCYTES # (AUTO) 0.8 10^3/uL (0.0-1.0); MONOCYTES % (AUTO) 7.1 %; NEUTROPHILS # (AUTO) 9.5 10^3/uL (1.5-6.6); NEUTROPHILS % (AUTO) 85.9 %; PLT - PLATELET COUNT 124 10^3/uL (130-450); RED BLOOD COUNT 3.47 10^6/uL (4.20-5.40); RED CELL DISTRIBUTION WIDTH 13.6 % (12.0-15.0); WHITE BLOOD COUNT 11.1 x10^3/uL (4.8-10.8)
[2022-06-21] MEDS ORDERED: POTASSIUM PHOSPHATE 15 MMOL in SODIUM CHLORIDE 0.9% 250 ML IV ONE (08:00)
[2022-06-21 08:07] LABS: CALCIUM 8.1 mg/dL (8.5-10.3); CREATININE 0.7 mg/dL (0.4-1.0); POTASSIUM 3.2 mmol/L (3.5-5.0)
[2022-06-21] MEDS: ASPIRIN 325 MG TABLET PO SCH (08:17)
[2022-06-21] MEDS: METOPROLOL 5 MG/5 ML VIAL IVP PRN ×2 (08:17→15:17)
[2022-06-21] MEDS: ATORVASTATIN 40 MG TABLET NG SCH (08:17)
[2022-06-21] MEDS: FAMOTIDINE 20 MG/2 ML VIAL IVP SCH (08:17)
[2022-06-21] MEDS: NICOTINE 14 MG PATCH TOP SCH (08:56)
[2022-06-21] MEDS: SACCHAROMYCES BOULARDII 250 MG CAPSULE PO SCH ×2 (11:26→18:39)
[2022-06-21] MEDS: MULTIVITAMIN W/MINERALS TABLET PO SCH (11:26)
[2022-06-21] MEDS: POTASSIUM CHLOR 10 MEQ/100 ML 10 MEQ/100 ML BAG IV SCH ×2 (11:26→12:52)
[2022-06-21] MEDS: AMIODARONE 200 MG TABLET PO SCH (14:28)
[2022-06-21] MEDS: levoFLOXacin 750 MG/150 ML 750 MG/150 ML BAG IV SCH (14:29)
[2022-06-21] MEDS: SODIUM CHLORIDE FLUSH 0.9% 10 ML SYRINGE IVP PRN ×2 (15:22→20:05)
[2022-06-21 16:39] LABS: PHOSPHORUS 1.5 mg/dL (2.5-4.6); POTASSIUM 3.6 mmol/L (3.5-5.0)
[2022-06-21] MEDS ORDERED: POTASSIUM PHOSPHATE 21 MMOL in SODIUM CHLORIDE 0.9% 250 ML IV ONE (18:02)
[2022-06-21] MEDS: ACETAMINOPHEN 325 MG TABLET PO PRN (20:20)
[2022-06-21] MEDS: FAMOTIDINE 20 MG TABLET PO SCH (20:20)
[2022-06-22] MEDS: METOPROLOL 5 MG/5 ML VIAL IVP PRN (00:21)
[2022-06-22] MEDS: SODIUM CHLORIDE FLUSH 0.9% 10 ML SYRINGE IVP PRN ×2 (00:28→04:59)
[2022-06-22 05:27] LABS: CALCIUM, IONIZED 1.12 mmol/L (1.15-1.33); VBG PH 7.38 (7.31-7.41)
[2022-06-22 05:47] LABS: PHOSPHORUS 2.1 mg/dL (2.5-4.6)
[2022-06-22] MEDS: metroNIDAZOLE 500 MG/100 ML 500 MG/100 ML BAG IV SCH (06:43)
[2022-06-22] MEDS: LEVOTHYROXINE 100 MCG TABLET NG SCH (06:44)
[2022-06-22 07:39] LABS: CALCIUM 8.3 mg/dL (8.5-10.3); CREATININE 0.6 mg/dL (0.4-1.0); POTASSIUM 3.9 mmol/L (3.5-5.0)
[2022-06-22] MEDS ORDERED: SODIUM PHOSPHATE 15 MMOL in SODIUM CHLORIDE 0.9% 250 ML IV ONE (08:00)
[2022-06-22] MEDS ORDERED: POTASSIUM PHOSPHATE 15 MMOL in SODIUM CHLORIDE 0.9% 250 ML IV ONE (08:00)
[2022-06-22] MEDS: ASPIRIN 325 MG TABLET PO SCH (08:14)
[2022-06-22] MEDS: MULTIVITAMIN W/MINERALS TABLET PO SCH (08:14)
[2022-06-22] MEDS: FAMOTIDINE 20 MG TABLET PO SCH (08:14)
[2022-06-22] MEDS: SACCHAROMYCES BOULARDII 250 MG CAPSULE PO SCH (08:14)
[2022-06-22] MEDS: NICOTINE 14 MG PATCH TOP SCH (08:18)
[2022-06-22] MEDS: SODIUM CHLORIDE FLUSH 0.9% 10 ML SYRINGE IVP SCH (08:19)
[2022-06-22] MEDS ORDERED: ATORVASTATIN 40 MG TABLET PO SCH (09:00)
--- NOTE | 2022-06-22 10:37 | Discharge Plan ---
"Discharge Plan for SNF / [facility] - Discharge Plan And Transition Orders Problem Reviewed?: Yes Disposition: 03 SNF DC/Xfer Condition: Critical Allergies and Adverse Reactions: Allergies Allergy/AdvReac Type Severity Reaction Status Date / Time ampicillin Allergy Hives Verified 06/25/21 13:51 codeine Allergy Hives Verified 06/25/21 13:51 Health Concerns: This is a 76-year-old female who has a history of chronic atrial fibrillation. However she has refused to take medications for rate control or anticoagulation and presented with acute left hemiplegia. Initial CT scan of the head was negative. Follow-up MRI showed multiple embolic strokes. Patient has chronic atrial fibrillation. A bedside echocardiogram was done by the hospitalist and she had thrombus in the left ventricle. After anticoagulation in several days, a formal echocardiogram was done and no more thrombus is present but she has moderate asymmetric septal hypertrophy without left ventricular outflow tract obstruction. Overall left ventricular systolic function 55 to 60%. Right ventricle normal in size and function. No significant valvular heart disease. She is now anticoagulated and rate controlled. Physical therapy has been working with her with regards to goals. Our concern is limited p.o. intake because of dysphagia. We approached her and her family with various outcomes due to this as well as various problems to solve this. JG tube was discussed. Patient initially wanted to feeds. But then realized that she did not want to continue with treatment if her recovery still included being hemiplegic. As such she would like to do physical therapy Plan of Treatment: We approached her and her family with various outcomes due to this as well as various problems to solve this. JG tube was discussed. Patient initially wanted tube feeding. But then realized that she did not want to continue with treatment if her long term care phlebotomist recovery still included being severely disabled from hemiplegia. As such she would like to do physical therapy, Work with speech therapy, and see what her outcomes are. She is hoping for an outcome where goal is to be able to sit to transfer, stand pivot to a wheelchair. She is adamant that she does not want long-term long-term facility placement. If it comes to needing long-term placement, she would rather be transition to hospice.Family, which included 2 daughters and 3 grandchildren, were at the bedside with this discussion. And they support the matriarch's decisions. Care Goals: She would like to live in her own home with her family again. However she needs to be independent enough for feeding herself, and probably toileting herself. Assessment: In spite of stroke, patient is still alert, oriented. She still has thought process deficit because of stroke, but is clear in her desires. - SNF / INTERMEDIATE Transition Orders Admit to (Facility): [facility] [place] Under the care of (Name): [facility], [facility]. Has not seen a PCP in years Discharge Diagnosis: 1 multiple embolic CVAs 2 chronic atrial fibrillation with RVR 3. Noncompliance with medications 4. Aspiration pneumonitis 5. Thrombus in her chamber 6. Hypothyroidism 7. Tobacco use 8. Residual left hemiplegia, dysarthria, dysphagia due to #1 Medicare Certification Statement: I certify that [facility] care is medically necessary on a continuing basis for any of the conditions for which she/he is receiving care during hospitalization. Notify PCP of admission and forward orders to primary provider for signature. Weight on admission and: Weekly Other Notification Orders: Call PCP immediately if patient develops dyspnea, chest pain/tightness or edema. House Bowel Program: Yes Additional Bowel Program Orders: If no BM after 2 days, nurse may give M.O.M. 30ml PO PRN and/or ducolax Supp 1 TN and/or ROSSI 250mg P.O., and/or senna 1-2 tabs PO. On day 3 nurse may give repeat above order until residents constipation is resolved. Annual Influenza Vaccine (between Dec 22 and July 21): Yes Two-step PPD per [facility] [phone] or approved exception documents: Yes Medication Orders: PLEASE REFER TO THE DISCHARGE MEDICATION LIST. - Medications New Prescriptions: Apixaban [Eliquis] 10 mg PO BID 7 Days #14 tablet metroNIDAZOLE [Flagyl] 500 mg PO TID 2 Days #6 tablet levoFLOXacin [Levaquin] 250 mg PO QD #2 tablet - Diet Type: No added sugar Texture: Puree Liquids: [place] thick (Moderately thickened fluids) May have monthly special meal: No - Therapies | Activity Therapy: Evaluation | Treat if indicated: Speech, PT, OT, Swallowing / ST Rehabilitation Potential: Return to independent living Activity: Activity as Tolerated Weight Bearing: Full Weight Assistance Devices: Wheelchair Additional Instructions: Patient tires easily. Please get up daily to a chair 3 times a day for meals for at least 20 to 30 minutes. She eats very slowly because of dysphagia and dysarthria and needs all of her liquids moderately thickened. visual training aide or program medical director will have to feed her. Encourage liquid intake since she is at risk for dehydration due to dysphagia and slow intake. Follow Up: She does not have a primary care provider, please call [facility] to establish herself with a new provider."
[2022-06-22 14:15] VITALS: BP 150/88
[2022-06-22] MEDS: AMIODARONE 200 MG TABLET PO SCH (14:57)
--- NOTE | 2022-06-22 15:39 | DISCHARGE SUMMARY ---
Discharge Summary Admit Date: 06/18/22 Discharge Date: 06/22/22 Discharging Provider: Leah Vang MD Primary Care Provider: No PCP Code Status: Do Not Attempt Resuscitation Condition at Discharge: Stable Discharge Disposition: SNF DC/Xfer - DIAGNOSES Discharge Diagnoses with Status of Each Condition: 1 multiple embolic CVAs 2 chronic atrial fibrillation with RVR 3. Noncompliance with medications 4. Aspiration pneumonitis 5. Thrombus in her chamber 6. Hypothyroidism 7. Tobacco use 8. Residual hemiplegia, dysarthria, dysphagia due to #1 9. Left internal carotid stenosis and left subclavian stenosis - HPI History of Present Illness: "76-year-old woman with history of A-fib, reportedly not currently on any medications because of lost to follow-up was found down today. She was intubated prior to arrival. CPR was performed on scene but was reportedly not pulseless for EMS. No further history is available. No family available initially.76-year-old woman who presents in coma with A-fib with RVR. She appears to have aspirated. There is a Rodrick tube in place with an air leak so we reintubated her with an endotracheal tube. Initial thought given that she was vomiting was for most likely a head bleed. Given that she was initially hypertensive she was administered some labetalol. Periintubation she became hypotensive down to 50/30 or so and was administered push dose epinephrine, 50 mcg. Subsequently was started on Norepinephrine drip via a expeditiously but sterilely placed right IJ central line. On return from CT her blood pressure was back up to 150/80 so the Levophed was stopped. She also had converted into normal sinus rhythm. Daughter arrived at the bedside And an independent history was taken from her. She heard a thud upstairs at 1830 which she thought was the cat. Subsequently went upstairs around 7 and found her on the floor in her bedroom. Subsequently I spoke with the [place] [facility] telestroke neurologist who looked at his imaging. He feels that there is early barron-white changes on the right and distal occlusion on the right that does not fit criteria for a large vessel occlusion. He recommends transfer to a neuro ICU but does not recommend TNK or Code IR transfer. The daughter at the bedside had never discussed goals of care with her mom. But she spoke with her sister, the patient's other daughter who I spoke with by phone and had discussed goals of care. She did not want super aggressive measures or heroic measures. [place], watchful waiting in our ICU versus a transition to comfort care and she opted for the middle option." I had a conference call with both daughters, Nichelle at bedside, and Sherrill who works as a clinical order processing specialist for [employer]. I had a detail talk with both daughter, patient had decent ADl, her episode of presentation as described above, she has been non compliant with meds, complaitns of feeling cold for over a year, stopped taking Xarelto 2 mos ago, I told ER MD and daughters best to transfer to higher level of care, both daughters in agreement that they would not want anyheroics or have their mom transferred out of [place]. patient is an active smoker, hx of hyperlioidemia, hx of non compliance to meds, hx of paroxsmal a fib, hypothyroidism and poor dentition. also has a sticky valve as per hemalatha but no other complaints Family understand patient will get better care at a stroke centrer and may need to see a vascular surgeon for Right ICA 90% stenosis. Patient has bertin inutbated in the field. TSH is 110 - Past Medical History Cardiovascular: reports: Hypertension, High cholesterol Endocrine/Autoimmune: reports: HyPOthyroidism - CONSULTS | PROCEDURES Procedures: Head CT, head CT angiogram, neck CT angiogram are all done. She has greater than 90% narrowing seen on left and approx 50% on right of the internal carotid arteries. She has left subclavian stenosis. Otherwise flow within the cerebral arteries was normal, visualized portion of the vertebral arteries showed normal caliber. There is no stroke seen. Chest x-ray with hazy right lower lung airspace opacity indicating our suspicion of aspiration pneumonitis in the face of dysphagia and dysarthria. Repeat head CT went on to show subacute infarcts in the right frontal, parietal and insular cortex. Fluid in the sphenoid sinus9 - HOSPITAL COURSE Hospital Course: This is a 76-year-old female who has a history of chronic atrial fibrillation. However she has refused to take medications for rate control or anticoagulation and presented with acute left hemiplegia. Initial CT scan of the head was negative.The patient was transferred to the ICU, sedated on IV propofol, ET tube in place and on a vent. They tried extubation on the morning of admission but she became very tachypneic and unable to follow directions. A bedside echo showed her to have a thrombus in her left atrium and she was back in atrial fibrillation. Her previous history of stopping Xarelto 2 months ago was noted. She was also noted to have a very high TSH because she was noncompliant with her thyroid medication and given 1 dose of IV Synthroid and then started on her replacement via NG. She was in and out of atrial fibrillation during her stay. Diltiazem IV push and diltiazem drip did not work to control her rate. Metoprolol IV push did not work. She was eventually started on amiodarone drip and loaded with amiodarone. Rate was finally controlled and with regards to echocardiogram she was switched to metoprolol for rate control. She was not kept on amiodarone since we did not feel that normal sinus rhythm would be achieved on a chronic basis. She was treated as aspiration pneumonitis because of her severe dysphagia and coughing up of yellowish-brown phlegm with fever and elevated white cell count. Follow-up MRI showed multiple embolic strokes. After no formal anticoagulati on due to her strokes and risk of hemorraghic conversion for several days, a formal echocardiogram was done and no more thrombus is present but she has moderate asymmetric septal hypertrophy without left ventricular outflow tract obstruction. Overall left ventricular systolic function 55 to 60%. Right ventricle normal in size and function. No significant valvular heart disease. She was then anticoagulated . After discussing with radiology what a large stroke consisted of. The literature does not recommend anticoagulation in the face of large strokes. Large was defined as territorial, such as a large middle cerebral artery stroke. She had missed multiple small embolic strokes and as gonzalez ch the risk of hemorrhagic conversion in the face anticoagulation was felt to be low. Physical therapy has been working with her with regards to goals. Our concern is limited p.o. intake because of dysphagia. We approached her and her family with various outcomes due to this as well as various problems to solve this. JG tube was discussed. Patient initially wanted to feeds. But then realized that she did not want to continue with treatment if her recovery still included being hemiplegic. As such she would like to do physical therapy, Work with speech therapy, and see what her outcomes are. She is hoping for an outcome where goal is to be able to sit to transfer, stand pivot to a wheel chair. She is adamant that she does not want long-term long term facility placement. If it comes to needing long-term placement, she would rather be transition to hospice.Family, which included 2 daughters and 3 grandchildren, were at the bedside with this discussion. And they support the matriarch's decisions. Care Goals: She would like to live in her own home with her family again. However she needs to be independent enough for feeding herself, and probably toileting herself. Assessment: In spite of stroke, patient is still alert, oriented. She still has thought process deficit because of stroke, but is clear in her desires. Exam at discharge had a temperature of 37.8. Heart rate 74. It was in atrial fibrillation but the patient has been in and out of sinus. Blood pressure 150/88. Respirations 24. 95% on room air. Left hemiplegia, left facial droop, dysarthria, dysphagia are present. Diet orders were modified for this. She has coarse upper airway sounds but no respiratory distress. An irregular rate and rhythm with a systolic ejection murmur. And abdomen that was soft, nontender. Extremities without edema. Greater than 30 minutes was put coordinating discharge - ALLERGIES Allergies/Adverse Reactions: Allergies Allergy/AdvReac Type Severity Reaction Status Date / Time ampicillin Allergy Hives Verified 06/25/21 13:51 codeine Allergy Hives Verified 06/25/21 13:51 - MEDICATIONS Home Medications: Ambulatory Orders Medication Instructions Recorded Confirmed Acetaminophen [Tylenol] 650 mg PO Q4HR PRN tab 06/22/22 Apixaban [Eliquis] 10 mg PO BID 7 Days #14 tablet 06/22/22 Atorvastatin [Lipitor] 40 mg PO DAILY tab 06/22/22 Carboxymethylcellulose 1% Opht 1 drops EACHEYE PRN PRN ml 06/22/22 [Refresh 1% Ophth Drops] Famotidine [Pepcid] 20 mg PO BID tab 06/22/22 Levothyroxine [Synthroid] 100 mcg NG QDAC tab 06/22/22 Metoprolol Tartrate [Lopressor] 50 mg PO BID #1 tablet 06/22/22 Multivitamin W/Minerals [Theragran 1 tab PO DAILYWM tab 06/22/22 M] Nicotine 14 mg Patch [Nicoderm] 1 patch TOP DAILY patch 06/22/22 levoFLOXacin [Levaquin] 250 mg PO QD #2 tablet 06/22/22 metroNIDAZOLE [Flagyl] 500 mg PO TID 2 Days #6 tablet 06/22/22 - LABS Result Diagrams: 06/21/22 05:30 06/22/22 04:30 - SEPSIS Current Stage of Sepsis: Ruled out
--- NOTE | 2022-06-25 07:46 | PROVIDER PROGRESS NOTE ---
Progress Note June 21, 2022 11 AM Continues to be in atrial fibrillation. Heart rate varies between 10 4-1 11. We will continue to use amiodarone and diltiazem for rate control. Phlegm is starting to clear. Not nearly as thick and brown as it was before. While she has not had any true temperature spikes, temperature remains slightly on the high normal side at 37.6, 37.7. Cough is weak. She does not complain of shortness of breath. Temperature is 37.7, heart rate 107, respiratory rate 26, room air saturation 95% Alert, continues to have slurred speech. Little bit harder to understand today but she is still able to express herself with short sentences. Continued rhonchi, but no wheezes and no respiratory distress. When her respiratory rate goes up is usually due to anxiety as she starts to think about her stroke and was going to happen in recovery. Irregular rate and rhythm. Systolic murmur. Abdomen is soft, nontender, normal bowel sounds Extremities are without edema Oriented to person and place and what happened to her. But does know the date. She has a facial droop, dysarthria, dysphagia. Left hemiplegia at 3/5 for the foot and leg. 2/5 for the arm. Lab: Sodium 140, potassium 3.2, chloride 112, BUN 15, creatinine 0.7 White cell count 11.1, hemoglobin 11.2, platelet 124 Assessment/Plan - Problem List (1) Cerebrovascular accident (CVA) Impression: The work-up on presentation in ED showed a stroke in evolution, as per Telestroke eval in ED. The family did not want to have her transferred to a neurologic ICU, which had been advised by Telestroke, and she was not a TNK candidate Because she presented wait longer than the 4 and half hours required for TNK.. On June 18 she had a dense left hemiplegia. Admitting in the early head start director hours. CT angiogram confirms right internal carotid stenosis. By the afternoon of the she was able to move her left leg a little bit. By the , she was able to follow commands. She was extubated. Between the and now continues to have slight improvement. Left leg is now able to bend at the knee, but cannot be lifted. Speech is slurred but intact. Lucid sentence structure. Swallowing has definitely been impacted. Seen by speech therapy today and we discussed this patient with regards to Slurred speech, slow tongue movement, not protecting her airway completely, causing risk of aspiration, and most likely she has already aspirated. Stroke appears to be embolic due to unanticoagulated atrial fibrillation. Clot was seen in the left atria with June 18 echocardiogram. Repeat echocardiogram done June 20 does not show clot. Repeat CT 06/20 at recommendation of admitting Neuro consult and she has subacute infarcts in the right frontal, parietal, and insular cortex. By my interpretation this is all compatible with multiple emboli from the patient is not anticoagulated in the face of atrial fibrillation. There is no evidence of hemorrhagic conversion. No significant gross mass effect or midline shift. Speech therapy has seen the patient on the and today and she remains at increased risk for aspiration due to her dysphagia. Moderate thickened liquids and pured diet recommended. But the patient hates the pured diet.. Plan: In ICU because she goes in and out of atrial fibrillation and has been on an amiodarone drip. We will continue with treating with daily aspirin and will consider changing to anticoagulation when she is passed the time when her stroke could transform into a hemorrhagic stroke. According to up-to-date, "once the stroke evaluation is complete, antithrombotic therapy may be modified according to the ischemic stroke mechanism. For patient's with atrial fibrillation, long-term anticoagulation is started, or resumed, once the risk of hemorrhagic transformation is diminished. This is usually within the first days to 2 weeks after stroke onset, as guided mainly by the size of the ischemic infarct. Their evaluation and review states that they prefer to wait 48 hours to start a DOAC in these patients as DOACs have more rapid anticoagulant effect. Withholding anticoagulation for 2 weeks is generally recommended for those with large ischemic strokes, symptomatic hemorrhagic transformation or poorly controlled hypertension." I was able to speak to radiology on service today. He agreed that the literature is vague. While they refer to "large" strokes as contraindication to anticoagulation in the first 2 weeks, he feels that they are referring to territorial stroke such as middle cerebral artery stroke. Hers are all much smaller than that. Physical therapy evaluated her and feels that she has improved ability to maintain upright trunk position with only intermittent tent minimum assist when on the bedside commode and moderate assist when sitting at the edge of the bed. But she still requires quite a bit of cues to bring her trunk to midline. She is exhausted after 30 minutes. He is recommending long term facility physical therapy with transportation via S. (2) Fever Fever spike on June 18 to 38 degrees. After that, temp was 37.8 and 37.9. After extubation, she is coughing up brown sputum which is thick brown and ramos. Given the stroke and recent intubation, she is at risk for further aspiration pneumonia Because of penicillin allergy she is on Levaquin and Flagyl. Today is day #3. Chest x-ray on June 19 confirms a hazy right lower lung zone airspace opacity which is anatomically the exact right place aspiration would occur. Blood cultures have no growth. Preliminary respiratory culture has many gram- positive cocci in clusters, gram-positive cocci in pairs and chains, gram- positive bacilli, gram-negative bacilli, many white cells, few epithelial cells. Plan: Continue the current antibiotics. To reduce her risk of further aspiration pneumonitis, she is on a pured diet with moderately thickened liquids. (3) A-fib with RVR Impression: Patient has a Hx of Paroxysmal Afib, since Afib has come and gone since admission. She was prescribed a DOAC. She took it for 1 month, then she did not want to refill it due to its cost. It appears she was not on any heart rate slowing prescriptions. Atrial fib-flutter has been with a rapid ventricular rate. She converted to sinus rhythm on her own and was in sinus bradycardia at rate 48 06/18, on no HR- slowing meds. At 6 am 06/19, she went back into atrial fib with RVR and Amio drip was started by the Telemedicine. 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 yesterday. To help control her rate, Cardizem CD 180 mg p.o. daily was added to her amiodarone yesterday. Rate has slowed down from the 120s and is now in the 1teens.. Plan: I will start anticoagulation at discharge, given the risk of transforming the acute stroke into a hemorrhagic stroke in the early stroke phase. 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 Because of her history of being noncompliant to medical recommendations and family not wanting her transferred for aggressive neurologic care, she may not be a candidate for pacemaker insertion. (4) Thrombus in heart chamber Impression: Bedside Echo was done 06/18 by hospitalist and showed a very dilated left atrium and very dilated left atrial appendage, with hazy area in the left atrial appendage that appeared to be a thrombus however that was by transthoracic echo, we do not have RIP here. She is at high risk of having a clot in the MATT, given the Hx A-fib and not having been on anticoagulation for a long time. Repeat echocardiogram was done by the maintenance technician.. Final report: She has mild hypertrophy with the [id number] variation on her ejection fraction but is calculated about 54%. Severe increase in left atrial volume index at 52 mils per meter squared. Moderate right atrial enlargement as well. No significant aortic valvular heart disease. There is mild to moderate secondary mitral regurg. RVSP at rest is 39 mmHg. No mass or thrombus identified. Plan: We will continue with treating with daily aspirin and I will not start a DOAC until discharge. (5) Hypothyroidism Impression: Patient had known hypothyroidism, and she did not take her thyroid medication, the 2 daughters admitted this. They both tried to convince her to take it and she simply refused. The daughter who lives with her gave examples of how she would wear a coat in a warm house occasionally because of being so cold, likely a sx of her hypothyroidism. Her TSH of level is extremely high consistent with untreated hypothyroidism. She received 1 dose of IV thyroid replacement. Currently on Synthroid 100 mcg a day that was started on June 19. Plan: She will need a new TSH checked in about 4 to 8 weeks (6) Abnormal EKG Impression: EKG from 06/18 showed sinus ciara at 48, and deep symmetrical anterior T wave inversions. Therefore troponins were ordered and are mildly elevated at 48 and 40 but they are flat. The EKG could be a sign of the stroke and not an acute NH, based on these troponin values Echo was done 06/18 that does show to separate areas of regional wall motion abnormalities, one at the basal inferior wall and another at the apex.Repeat echo does not show any regional wall motion abnormalities. Just the [id number] variation of ejection fraction. Plan: She likely has coronary disease based on the Echo results and given her Hx of not taking prescribed meds. (7) Tobacco use Plan: On a nicotine patch. She says that she will never smoke again. (8) Noncompliance with medication regimen Impression: Both daughters gave me many examples of how the patient was noncompliant with prescribed medications and management: The pt verbalized that she no longer has a heart problem now that her dental work was completed, teeth extracted and got new dentures, and that she did not need to go to a doctor because she was treating her cough and shortness of breath with Primatene Mist on her own. The patient would only be seen at walk-in clinics or ERs and those were very rare times. She finally agreed to see and establish with a primary care doctor recently, and then canceled that appointment 2 days prior, again told the daughters that she did not need to see a doctor. Plan: Advance care planning was done (see separate entry). SW consult requested
== END 2022-06-22 15:01 | DRG 64 ==
LOC: ED 19:36 → ICU 23:37
PROVIDERS: ADMIT Internal Medicine; ATTEND Specialist
PROC: 5A1945Z Respiratory Ventilation, 24-96 Consecutive Hours (ICD-10-PCS; principal; 2022-06-17)
DX: I63.9 Cerebral infarction, unspecified (principal); R40.20 Unspecified coma; I48.91 Unspecified atrial fibrillation; I63.40 Cerebral infarction due to embolism of unspecified cerebral artery; J69.0 Pneumonitis due to inhalation of food and vomit; T17.908A Unspecified foreign body in respiratory tract, part unspecified causing other injury, initial encounter; J96.90 Respiratory failure, unspecified, unspecified whether with hypoxia or hypercapnia; I95.9 Hypotension, unspecified; G81.94 Hemiplegia, unspecified affecting left nondominant side; R47.81 Slurred speech; R13.10 Dysphagia, unspecified; I10 Essential (primary) hypertension; Z78.1 Physical restraint status; T50.916A Underdosing of multiple unspecified drugs, medicaments and biological substances, initial encounter; Z91.128 Patient's intentional underdosing of medication regimen for other reason; I51.3 Intracardiac thrombosis, not elsewhere classified; I48.0 Paroxysmal atrial fibrillation; E03.9 Hypothyroidism, unspecified; R94.31 Abnormal electrocardiogram [ECG] [EKG]; Z66 Do not resuscitate; Z20.822 Contact with and (suspected) exposure to COVID-19; R50.9 Fever, unspecified; R00.1 Bradycardia, unspecified; I25.10 Atherosclerotic heart disease of native coronary artery without angina pectoris; F41.9 Anxiety disorder, unspecified; R29.810 Facial weakness; R47.1 Dysarthria and anarthria; I65.23 Occlusion and stenosis of bilateral carotid arteries; F17.210 Nicotine dependence, cigarettes, uncomplicated
CPT/HCPCS: 31500; 36415; 36556; 36600; 70450; 70496; 70498; 71045; 80048; 80053; 80306; 80307; 81001; 82330; 82803; 83735; 84100; 84132; 84436; 84443; 84484; 85025; 85610; 87040; 87070; 87077; 87150; 87181; 87205; 87633; 87635; 92523; 92526; 92610; 93005; 93306; 94002; 94003; 96374; 96375; 97112; 97162; 97167; 97530; 99291; A9270; G0480; J0282; Q9967; 80320; 80329; 81003; 87086; 94770

== ENCOUNTER 2022-06-29 14:28 | Outpatient (CLI) | payer MEDICARE, MEDICAID ==
--- NOTE | 2022-06-29 15:54 | XRAY Report ---
PROCEDURE: Chest 2 View X-Ray INDICATIONS: ACUTE COUGH, WHEEZING, PNEUMONITIS DUE TO INHALATI TECHNIQUE: 2 views of the chest were acquired. COMPARISON: Chest x-ray, 06/19/2022. FINDINGS: Surgical changes and devices: None. Lungs and pleura: Bilateral small pleural effusions. Increased pulmonary vascularity. No pneumothor ax. Mediastinum: Mediastinal contours are normal. Heart size is increased. Bones and chest wall: Kyphosis. No suspicious bony abnormalities. Soft tissues appear unremarkable. IMPRESSION: 1. Mild cardilomegaly and increased pulmonary vascularity small bilateral pleural effusions suggestin g congestive heart failure. Cannot rule out superimposed pneumonia in Lower lobes. Reviewed by: Chey Youngblood MD on 06/29/2022 3:52 PM PST Approved by: Chey Youngblood MD on 06/29/2022 3:52 PM PST Station ID: [id number]
== END 2022-06-29 14:29 | disposition home or self-care (01) ==
LOC: DI 14:28
PROVIDERS: ATTEND Registered Nurse
DX: J90 Pleural effusion, not elsewhere classified (principal); I51.7 Cardiomegaly